=== PATIENT | male | born 1955 | race Caucasian/White ===

== ENCOUNTER 2016-10-15 07:33 | Inpatient (IN) | payer BC ==
[~2016-10-15] VITALS: Ht 177.8 cm; Wt 96.2 kg
[2016-10-15] VITALS (7 sets, daily range): BP systolic 111–186; BP diastolic 63–96; PULSE 74–105; RESP 12–19; TEMP 96.1–98.2; O2SAT 91–99
--- NOTE | 2016-10-15 07:44 | PD ---
HPI Chief Complaint: Musculoskeletal Complaint Time Seen by Provider: 07:43 Travel History International Travel<30 days: No Contact w/Intl Traveler<30days: No Traveled to known affect area: No History of Present Illness HPI 60-year-old male came to the emergency room brought by EMS after he slipped and fell on a wet surface on the floor and injured his right leg. The accident happened at 6:45 AM. Patient denies any loss of consciousness or head injury following the accident. He says he was absolutely fine before he slipped and fell. Patient was unable to get up and bear weight. His roommate called 911. As per EMS they found him with his right leg under his torso. Patient has an obvious right knee deformity. He is unable to move his leg at the knee joint due to the pain. He is awake and answering questions appropriately. He says that he last ate was at midnight. He took a few sips of soda while he was waiting for the paramedics. [place] He has history of diabetes and his bedside blood glucose was 225. His vital signs were within acceptable limits. Patient takes alcohol occasionally. He did drink 2 beers last night. PFSH Past Medical History Narrative Medical List of his past medical history as reviewed from the nursing note. Social History Alcohol Use: Yes Tobacco Use: Yes Allergies-Medications (Allergen,Severity, Reaction): Coded Allergies: No Known Allergies (Unverified , 10/15/16) Comments No known drug allergies. Reported Meds & Prescriptions Reported Meds & Active Scripts Active Reported Aspirin 81 Low Dose (Aspirin) 81 Mg Chew 81 Mg CHEW DAILY Hydrochlorothiazide Unknown Strength Cap Unknown Dose PO DAILY Glipizide Unknown Strength Tab Unknown Dose PO BIDAC Take 30 minutes before a meal Gabapentin Unknown Strength Cap 300 Mg PO TID Atorvastatin (Atorvastatin Calcium) Unknown Strength Tab 40 Mg PO HS Metformin (Metformin HCl) 500 Mg Tab 500 Mg PO DAILY With a meal Narrative Medication Awaiting for the nurse to do a med reconciliation. Review of Systems Except as stated in HPI: all other systems reviewed are Neg Physical Exam Narrative GENERAL: Awake, alert, moderate distress SKIN: Warm and dry. HEAD: Atraumatic. Normocephalic. EYES: Pupils equal and round. No scleral icterus. No injection or drainage. ENT: No nasal bleeding or discharge. Mucous membranes pink and moist. NECK: Trachea midline. No JVD. CARDIOVASCULAR: Regular rate and rhythm. No murmur appreciated. RESPIRATORY: No accessory muscle use. Clear to auscultation. Breath sounds equal bilaterally. GASTROINTESTINAL: Abdomen soft, non-tender, nondistended. Hepatic and splenic margins not palpable. MUSCULOSKELETAL: Right knee swollen and possible dislocation. Right foot is pointing laterally. No clubbing. No cyanosis. No edema. Poor distal pulses. Positive Doppler pulses. Patient is able to move his toes and light touch sensation intact. Overgrown toenails with poor diabetic foot hygiene. Right distal ankle is swollen but nontender. Swelling of the right knee. Patient has significantly decreased range of motion at the right knee, right hip and right ankle joint due to pain. NEUROLOGICAL: Awake and alert. No obvious cranial nerve deficits. Motor grossly within normal limits. Normal speech. PSYCHIATRIC: Appropriate mood and affect; insight and judgment normal. Data Data Last Documented VS Orders Knee, Complete (4vws) (10/15/16 ) Hip, Uni(Ap&Lat) W Ap Pelvis (10/15/16 ) Morphine Inj (Morphine Inj) (10/15/16 08:00) Ondansetron Inj (Zofran Inj) (10/15/16 08:00) Ankle, Limited (Ap&Lat) (10/15/16 ) Electrocardiogram (10/15/16 08:57) Basic Metabolic Panel (Bmp) (10/15/16 08:57) Complete Blood Count With Diff (10/15/16 08:57) Prothrombin Time / Inr (Pt) (10/15/16 08:57) Act Partial Throm Time (Ptt) (10/15/16 08:57) Chest, Single Ap (10/15/16 08:57) Ecg Monitoring (10/15/16 08:57) Bilateral Bp Monitoring (10/15/16 08:57) Iv Access Insert/Monitor (10/15/16 08:57) Oximetry (10/15/16 08:57) Oxygen Administration (10/15/16 08:57) Morphine Inj (Morphine Inj) (10/15/16 09:00) Sodium Chloride 0.9% Flush (Ns Flush) (10/15/16 09:00) Sodium Chlor 0.9% 1000 Ml Inj (Ns 1000 M (10/15/16 09:57) Splinting (10/15/16 ) Admit Order (Ed Use Only) (10/15/16 09:30) Labs MDM Medical Decision Making Medical Screen Exam Complete: Yes Emergency Medical Condition: Yes Medical Record Reviewed: Yes Interpretation(s) Twelve-lead EKG was reviewed by me. Normal sinus rhythm, normal axis, nonspecific ST-T wave changes. Heart rate of 85 bpm. Differential Diagnosis The dislocation, knee fracture, hip dislocation, hip fracture, ankle fracture Narrative Course 8:21 AM awaiting for the x-rays to be done and resulted. I have medicated the patient for pain. I will reassess him in a bit. 9:31 AM patient has comminuted supracondylar femur fracture. He also has a trimalleolar right ankle fracture. I have ordered for a long-leg posterior and U-splint. I have put a call out for Dr. Marin who is on-call for orthopedics. Patient has been remedicated for pain. Patient has been made aware of his x- ray diagnoses and possible surgery. I have asked him to stay nothing by mouth in case this surgery happens later today. I spoke with the residents who have accepted the case. 9:50 AM awaiting for the orthopedist Dr. Brady to call back. 9:[address] Marin called back and he wanted the patient to be admitted to medical service and Dr. Morin will operate tomorrow on the patient. Procedures EKG Prior to Arrival: No Diagnosis Primary Impression: Femoral distal fracture Qualified Code: S72.401A - Closed fracture of distal end of right femur, unspecified fracture morphology, initial encounter Additional Impressions: Trimalleolar fracture Qualified Code: S82.851A - Trimalleolar fracture, right, closed, initial encounter Slipping, tripping and stumbling without falling due to stepping from one level to another, initial encounter Admitting Information Admitting Physician Requests: Admit Scripts Calcium Carbonate-Vitamin D (Calcium 600+D 200)600-200 Mg-Unit Tab1 Tab PO BID 30 Days Ref 0 Prov:Christo Weiss 10/16/16 Cholecalciferol (Vitamin D3)2,000 Unit Cap2,000 Units PO DAILY #56 CAP Ref 0 Prov:Christo Weiss 10/16/16 Ergocalciferol 50,000 Unit Cap50,000 Units PO Q7D #56 CAP Prov:Christo Weiss ALIZA 10/16/16 Rivaroxaban (Xarelto)10 Mg Tab10 Mg PO DAILY #21 TAB Ref 0 Prov:Chrisot Weiss ALIZA 10/16/16 Hydrocodone-Acetaminophen ([place])10-325 Mg Tab1 Tab PO Q4H PRN (PAIN) #60 TAB Ref 0 Prov:Christo Weiss ALIZA 10/16/16 Fortunato Rodriguez MD Oct 15, 2016 07:44 Prothrombin Time 10.3 SEC Prothromb Time International 0.9 RATIO Ratio Activated Partial 23.4 SEC Thromboplast Time Sodium Level 138 MEQ/L Potassium Level 4.0 MEQ/L Chloride Level 106 MEQ/L Carbon Dioxide Level 24.5 MEQ/L Anion Gap 8 MEQ/L Blood Urea Nitrogen 34 MG/DL Creatinine 1.87 MG/DL Estimat Glomerular Filtration 37 ML/MIN Rate Random Glucose 230 MG/DL Calcium Level 8.3 MG/DL [facility] Medical Decision Making Medical Screen Exam Complete: Yes Emergency Medical Condition: Yes Medical Record Reviewed: Yes Interpretation(s) Twelve-lead EKG was reviewed by me. Normal sinus rhythm, normal axis, nonspecific ST-T wave changes. Heart rate of 85 bpm. Differential Diagnosis The dislocation, knee fracture, hip dislocation, hip fracture, ankle fracture Narrative Course 8:21 AM awaiting for the x-rays to be done and resulted. I have medicated the patient for pain. I will reassess him in a bit. 9:31 AM patient has comminuted supracondylar femur fracture. He also has a trimalleolar right ankle fracture. I have ordered for a long-leg posterior and U-splint. I have put a call out for Dr. Marin who is on-call for orthopedics. Patient has been remedicated for pain. Patient has been made aware of his x- ray diagnoses and possible surgery. I have asked him to stay nothing by mouth in case this surgery happens later today. I spoke with the residents who have accepted the case. 9:50 AM awaiting for the orthopedist Dr. Brady to call back. 9:[address] Marin called back and he wanted the patient to be admitted to medical service and Dr. Morin will operate tomorrow on the patient. Procedures EKG Prior to Arrival: No Diagnosis Primary Impression: Femoral distal fracture Qualified Code: S72.401A - Closed fracture of distal end of right femur, unspecified fracture morphology, initial encounter Additional Impressions: Trimalleolar fracture Qualified Code: S82.851A - Trimalleolar fracture, right, closed, initial encounter Slipping, tripping and stumbling without falling due to stepping from one level to another, initial encounter Admitting Information Admitting Physician Requests: Admit Fortuanto Rodriguez MD Oct 15, 2016 07:44
[2016-10-15] MEDS ORDERED: ONDANSETRON HCL 4 MG/2 ML VIAL IV PUSH ONE (08:00)
[2016-10-15] MEDS ORDERED: MORPHINE SULFATE 4 MG/ML INJ IV PUSH ONE ×2 (08:00→09:00)
[2016-10-15] MEDS ORDERED: METF500T PO (08:15)
[2016-10-15] MEDS ORDERED: ATOR10TA15 PO (08:15)
[2016-10-15] MEDS ORDERED: GABA100C4 PO (08:16)
[2016-10-15] MEDS ORDERED: ASPI81CH3 CHEW (08:16)
[2016-10-15] MEDS ORDERED: GLIP5TAB8 PO (08:16)
[2016-10-15] MEDS ORDERED: HYDR12.57 PO (08:16)
[2016-10-15] MEDS ORDERED: SODIUM CHLORIDE 0.9% FLUSH 5 ML FLUSH IVF PRN ×2 (09:00→09:45)
--- NOTE | 2016-10-15 09:02 | RADRPT ---
EXAM DATE/TIME: 10/15/2016 08:28 [facility] COMPARISON: No previous studies available for comparison. INDICATIONS : Right knee pain after falling this morning. MEDICAL HISTORY : None. SURGICAL HISTORY : Right knee arthroscopy. ENCOUNTER: Initial ACUITY: 1 day PAIN SCORE: 9/10 LOCATION: Right knee. FINDINGS: There is a comminuted fracture of the distal right femur with a leak fracture lines extending through the metaphyseal region of the bone. There is apex anterior angulation and nearly 1/2 shaft width pos terior displacement of multiple distal fracture fragments. Some impaction of the femoral shaft down i nto the condylar fragments. The patella appears grossly intact. The tibia and fibula appear intact. T here is severe baseline degenerative arthritic change with near-complete medial compartment joint spa ce loss and tricompartmental osteophyte formation. CONCLUSION: Comminuted, impacted, displaced and angulated fracture of the distal right femoral metaphyseal region Jericho Irvin MD on October 15, 2016 at 8:58 Board Certified Radiologist. This report was verified electronically.
--- NOTE | 2016-10-15 09:04 | RADRPT ---
EXAM DATE/TIME: 10/15/2016 08:25 [facility] COMPARISON: No previous studies available for comparison. INDICATIONS : Right hip pain after falling this morning. MEDICAL HISTORY : None. SURGICAL HISTORY : Right knee arthroscopy. ENCOUNTER: Initial ACUITY: 1 day PAIN SCORE: 9/10 LOCATION: Right hip. FINDINGS: Examination of the right hip was performed with AP Pelvis. The primary and secondary trabecular ryan justin of the femoral neck is intact. The hip joint is of normal width without significant sclerosis or bony hypertrophy. The acetabulum is grossly intact. CONCLUSION: Unremarkable examination of the right hip. Jericho Irvin MD on October 15, 2016 at 9:02 Board Certified Radiologist. This report was verified electronically.
--- NOTE | 2016-10-15 09:07 | RADRPT ---
EXAM DATE/TIME: 10/15/2016 08:25 [facility] COMPARISON: No previous studies available for comparison. INDICATIONS : Right ankle pain after falling this morning. MEDICAL HISTORY : None. SURGICAL HISTORY : Right knee arthroscopy. ENCOUNTER: Initial ACUITY: 1 day PAIN SCORE: 9/10 LOCATION: Right ankle. FINDINGS: A trimalleolar right ankle fracture is identified. There is a minimally displaced oblique fracture of the distal fibula centered on the tibiofibular joint. A minimally displaced fracture of the medial m alleolus and posterior malleolus are identified. There is slight apparent superior offset of the talu s relative to the tarsal navicular which may reflect injury at Chopart's joint. There are degenerativ e changes in the ankle and hindfoot. Small plantar heel spur is present. Prominent vascular calcifica tions are noted. CONCLUSION: Trimalleolar ankle fracture with slight displacement of the fragments. Mild talonavicular joint sublu xation. Jericho Irvin MD on October 15, 2016 at 9:02 Board Certified Radiologist. This report was verified electronically.
--- NOTE | 2016-10-15 09:14 | HHI.HP ---
[facility] Service Family Medicine Primary Care Physician Non-Staff Admission Diagnosis Diagnoses: International Travel<30 Days: No Contact w/Intl Traveler<30days: No Known Affected Area: No History of Present Illness Mr. Marsh is a 60 y/o CM with a PMHx of HPLD, HTN, and T2DM presenting to the ER s/p fall. He is with a friend in [facility] for the races, and he assists in the history. He states that this morning at approximately 0630 he got up to go use the bathroom when he fell. He did not lose consciousness during the fall and describes it as "falling backward onto his RLE with his LLE going forward in front of him." When he fell he heard a "crack" and immediately lost feeling in his entire RLE. He tried to get up from the floor, but was unable to bear weight on his RLE. At that time, he began feeling 10/10 pain "stabbing" pain in his knee. His friend called EMS and was transported to the ER. Currently he only complains of knee pain that is currently tolerable as he has just received a dose of morphine. He does not complain of any ankle or hip pain. He last had any food at around midnight, but has had soda this morning. Of note he has had R knee arthroscopy approximately 30 years ago. He denies any fevers, chills, SOB , chest pain, NVD, or calf tenderness. (Ethan Mcelroy MD R1) Review of Systems Constitutional: DENIES: Fever, Chills Endocrine: DENIES: Polyuria Eyes: DENIES: Blurred vision Ears, nose, mouth, throat: DENIES: Throat pain Respiratory: DENIES: Cough, Shortness of breath Cardiovascular: DENIES: Chest pain, Palpitations Gastrointestinal: DENIES: Diarrhea, Nausea, Vomiting Genitourinary: DENIES: Dysuria Musculoskeletal: COMPLAINS OF: Joint pain (R leg) Integumentary: DENIES: Rash Hematologic/lymphatic: DENIES: Lymphadenopathy Immunologic/allergic: DENIES: Urticaria Neurologic: DENIES: Headache Psychiatric: DENIES: Mood changes (Ethan Mcelroy MD R1) Past Family Social History Past Medical History HTN DM type 2 with neuropathy HPLD Osteoarthritis Past Surgical History Elbow fracture fixation as teenager R knee arthroscopy 30 years ago (Ethan Mcelroy MD R1) Allergies: Coded Allergies: No Known Allergies (Unverified , 10/15/16) Family History Mother - DM, HTN Father - unknown Son - OA Social History Live in [place], visiting [facility] for race week. 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 Alcohol - occasionally yearly, last drink was a tallboy beer last night Smoke - Denies Illicit - Occasionally, every few weeks, last used 2 weeks ago Denies any IVD, HIV, or hepatitis history. (Ethan Mcelroy MD R1) Physical Exam Vital Signs Vital Signs Date Time Temp Pulse Resp B/P Pulse Ox O2 Delivery O2 Flow Rate FiO2 10/15/16 09:03 86 12 160/76 99 Room Air 159/72 10/15/16 07:49 98.0 77 12 160/74 97 10/15/16 07:38 98.2 83 16 152/70 98 Physical Exam GENERAL: Pale appearing 60 y/o M lying in bed in no acute distress. RLE is angled outward opening the hip with LLE midline. SKIN: Multiple scratches of the upper and lower extremities patient states due to cats. No rashes or obvious trauma. Cool and dry. HEENT: Atraumatic, normocephalic with EOMI. Pupils miotic s/p morphine. Oropharynx clear without exudate or erythema. No rhinorrhea. No palpable LAD. CARDIOVASCULAR: RRR with no MGR. RESPIRATORY: CTA BL with no CRW. No increased work of breathing. GASTROINTESTINAL: Abdomen soft, non-tender, nondistended with +BS. No masses appreciated. MUSCULOSKELETAL: Extremities without cyanosis or edema. No calf tenderness. RLE: RLE angled outward opening the hip with ice packs applied to R knee and ankle. Patient unable to move extremity due to pain in the knee, but is able to move his toes. Knee appears to possibly be dislocated, but difficult to evaluate due to swelling. Pulses marked via doppler. Sensation intact throughout the RLE. Foot with overgrown toenails. No open ulcerations. NEUROLOGICAL: Awake and alert. Cranial nerves II through XII intact. Normal speech. (Ethan Mcelroy MD R1) Imaging Last 72 hours Impressions Chest X-Ray 10/15/16 0857 Signed Impressions: Service Date/Time: September 09:08 - CONCLUSION: Questionable opacity or pleural thickening at the right apex. Recommend further characterization with noncontrast CT thorax. Anjel Christensen MD Knee X-Ray 10/15/16 Signed Impressions: Service Date/Time: September 08:28 - CONCLUSION: Comminuted , impacted, displaced and angulated fracture of the distal right femoral metaphyseal region Jericho Irvin MD Hip and Pelvis X-Ray 10/15/16 Signed Impressions: Service Date/Time: September 08:25 - CONCLUSION: Unremarkable examination of the right hip. Jericho Irvin MD Ankle X-Ray 10/15/16 Signed Impressions: Service Date/Time: September 08:25 - CONCLUSION: Trimalleolar ankle fracture with slight displacement of the fragments. Mild talonavicular joint subluxation. Jericho Irvin MD (Ethan Mcelroy MD R1) Assessment and Plan Assessment and Plan Mr. Marsh is a 60 y/o CM with a PMHx of HTN, HPLD, and T2DM who is s/p fall presenting to the ED with multiple right lower extremity fractures. He will be admitted and orthopedic surgery will be consulted for corrective surgery. Code Status Full Discussed Condition With , ED physician Dr. Hollis Quinteros (Ethan Mcelroy MD R1) Attending Attestation Patient seen and examined. Case reviewed and discussed with the resident team. Agree with plan of care as discussed with me and documented in the resident note. (Rosa Shafer MD) Problem List: (1) Femoral distal fracture Status: Acute Plan: 60 y/o patient who is s/p fall without loss of consciousness shown to have closed distal femoral and trimalleolar fractures of the right lower extremity. Orthopedic surgery consulted and will take patient to surgery tomorrow for fixation. Knee x-ray: Comminuted, impacted, displaced, and angulated fracture of the distal right femoral metaphyseal region. Ankle x-ray: Trimalleolar ankle fracture with slight displacement of the fragments. Mild talonavicular joint subluxation. Hip/pelvis x-ray: Unremarkable examination of the right hip. Orthopedic surgery consulted, Dr. Miller, and will plan to take patient to surgery tomorrow for fixation. Medications: Hydrocodone 5 mg every 4 hours when necessary for pain 1-5, hydrocodone 10 mg every 4 hours when necessary for pain 6-10, Morphine 4 mg every 2 hours when necessary for breakthrough pain. (2) Trimalleolar fracture Status: Acute Plan: Please see plan as above (3) Slipping, tripping and stumbling without falling due to stepping from one level to another, initial encounter Status: Acute Plan: Please see plan as above (4) Abnormal chest xray Status: Chronic Plan: Chest x-ray showing questionable opacity or pleural thickening at right apex. Chest x-ray: Vaginal Pap smear pleural thickening at the right apex. Recommended further characterization with noncontrast CT Noncontrast CT chest/thorax: Right thyroid mass. Recommend further evaluation with thyroid ultrasound. Small right lung nodules which can be followed. --Thyroid US: Pending Patient to follow up with PCP concerning right lung nodules. (5) Hyperlipidemia Status: Chronic Plan: Patient with hyperlipidemia currently on atorvastatin Patient currently does not know home dose, instructed patient to bring in medications for further reconciliation. (6) HTN (hypertension) Status: Chronic Plan: Patient with chronic hypertension currently on hydrochlorothiazide Patient currently does not know home dose, instructed patient to bring in medications for further reconciliation. Hydralazine 10 mg every 6 hours when necessary for SBP greater than 180 or diastolic blood pressure greater than 110 (7) Type 2 diabetes mellitus Status: Chronic Plan: Patient with type 2 diabetes currently on glipizide, metformin, and gabapentin for neuropathy. Glucose 2:30 on admission. Patient currently does not know home dose, instructed patient to bring in medications for further reconciliation. Patient placed on low-dose NovoLog sliding scale insulin per protocol. (8) Nutrition, metabolism, and development symptoms Status: Acute Plan: Diet: Heart healthy, patient to be nothing by mouth at midnight in preparation for surgery in a.m. Fluids: LR at 100 mL per hour to be in at midnight as patient will be nothing by mouth DVT prophylaxis: SCD/TEDs applied to the noninjured extremity, hold home aspirin GI: Zofran 4 mg every 6 hours when necessary for nausea or vomiting Preventative: Benadryl 25 mg every 4 hours when necessary for itching, Sydni- Colace 2 tabs twice a day when necessary for constipation, Tylenol 650 mg every 4 hours when necessary for fever (Ethan Mcelroy MD R1) Physician Certification 2 Midnight Certification Type: Admission for Inpatient Services Order for Inpatient Services The services are ordered in accordance with Medicare regulations or non- Medicare payer requirements, as applicable. In the case of services not specified as inpatient-only, they are appropriately provided as inpatient services in accordance with the 2-midnight benchmark. Estimated LOS (days): 3 3 days is the estimated time the patient will need to remain in the hospital, assuming treatment plan goals are met and no additional complications. Post-Hospital Plan: Home (Ethan Mcelroy MD R1) Problem Qualifiers (1) Femoral distal fracture: Qualified Code: S72.401A - Closed fracture of distal end of right femur, unspecified fracture morphology, initial encounter (2) Trimalleolar fracture: Qualified Code: S82.851A - Trimalleolar fracture, right, closed, initial encounter Ethan Mcelroy MD R1 Oct 15, 2016 09:14 Rosa Shafer MD Oct 16, 2016 11:53
[2016-10-15 09:16] LABS: AUTOMATED NEUTROPHIL # 9.9 TH/MM3 (1.8-7.7); BASOPHIL # 0.1 TH/MM3 (0-0.2); BASOPHIL % 0.5 % (0.0-2.0); EOSINOPHIL # 0.4 TH/MM3 (0-0.4); EOSINOPHIL % 2.6 % (0.0-4.0); HEMATOCRIT 37.1 % (39.0-51.0); HEMO FLAGS DIFF FINAL; LYMPHOCYTE # 2.5 TH/MM3 (1.0-4.8); MEAN CELL VOLUME 85.2 FL (80.0-100.0); MEAN CORPUSCULAR HEMOGLOBIN 28.9 PG (27.0-34.0); MEAN CORPUSCULAR HGB CONC 33.9 % (32.0-36.0); MONO % 5.7 % (0.0-8.0); NEUT % 73.2 % (16.0-70.0); PLATELET COUNT 220 TH/MM3 (150-450); RED BLOOD COUNT 4.35 MIL/MM3 (4.50-5.90); RED CELL DISTRIBUTION WIDTH 13.2 % (11.6-17.2); WHITE BLOOD COUNT 13.6 TH/MM3 (4.0-11.0)
[2016-10-15 09:27] LABS: APTT (PATIENT) 23.4 SEC (24.3-30.1); INTERNATIONAL NORMALIZED RATIO 0.9 RATIO; PROTHROMBIN TIME - PATIENT 10.3 SEC (9.8-11.6)
--- NOTE | 2016-10-15 09:38 | RADRPT ---
EXAM DATE/TIME: 10/15/2016 09:08 [facility] COMPARISON: No previous studies available for comparison. INDICATIONS : Evaluate for pneumonia, pneumothorax, and communicable disease. Right leg fracture with possible tejas maki. MEDICAL HISTORY : Hypertension. Hypercholesterolemia. Diabetes. SURGICAL HISTORY : Right knee arthroscopy. ENCOUNTER: Initial ACUITY: 1 day PAIN SCORE: 0/10 LOCATION: Bilateral chest FINDINGS: There is an asymmetric appearance to the pulmonary apex with questionable opacity or pleural thickeni ng on the right side. There is also some deformity of the right 1st rib which may be due to old bony injury. The remainder of the lungs are clear. Both hemidiaphragms well delineated. The heart is n ormal size. The central bronchopulmonary markings well delineated. CONCLUSION: Questionable opacity or pleural thickening at the right apex. Recommend further characterization wit h noncontrast CT thorax. Anjel Christensen MD on October 15, 2016 at 9:35 Board Certified Radiologist. This report was verified electronically.
[2016-10-15] MEDS ORDERED: LACTATED RINGER'S 1000 ML INJ 1,000 ML IV SCH (09:39)
[2016-10-15 09:42] LABS: BICARBONATE 24.5 MEQ/L (21.0-32.0)
[2016-10-15] MEDS ORDERED: DEXTROSE 50% IN WATER 50 ML VIAL(D50) IV PUSH PRN (09:45)
[2016-10-15] MEDS ORDERED: DOCUSATE SODIUM 50 MG/SENNA 8.6 MG TAB PO PRN (09:45)
[2016-10-15] MEDS ORDERED: SODIUM CHLORIDE 0.9% FLUSH 5 ML FLUSH FLUSH SCH (09:45)
[2016-10-15] MEDS ORDERED: ENALAPRILAT 1.25 MG/ML VIAL IV PRN (09:45)
[2016-10-15] MEDS: SODIUM CHLORIDE 0.9% FLUSH 5 ML FLUSH IVF SCH ×2 (09:45→20:38)
[2016-10-15] MEDS ORDERED: diphenhydrAMINE HCL 25 MG CAP PO PRN (09:45)
[2016-10-15] MEDS ORDERED: MORPHINE SULFATE 8 MG/ML INJ IV PUSH PRN (09:45)
[2016-10-15] MEDS ORDERED: ACETAMINOPHEN 325 MG TAB PO PRN (09:45)
[2016-10-15] MEDS ORDERED: ACETAMINOPHEN/HYDROcodone 325 MG/5 MG TAB PO PRN (09:45)
[2016-10-15] MEDS ORDERED: GLUCAGON 1 MG/ML VIAL OTHER PRN (09:45)
[2016-10-15] MEDS ORDERED: NALOXONE HCL 0.4 MG/ML AMP IV PRN (09:45)
[2016-10-15] MEDS ORDERED: SODIUM CHLORIDE 0.9% FLUSH 5 ML FLUSH FLUSH PRN (09:45)
[2016-10-15] MEDS ORDERED: SODIUM CHLOR 0.9% 1000 ML INJ 1,000 ML IV SCH (09:57)
[2016-10-15] MEDS ORDERED: MORPHINE SULFATE 4 MG/ML INJ IV PUSH PRN ×2 (11:00→18:00)
--- NOTE | 2016-10-15 11:06 | RADRPT ---
EXAM DATE/TIME: 10/15/2016 10:37 [facility] COMPARISON: CHEST SINGLE AP, October 15, 2016, 9:08. INDICATIONS : Abnormal chest x-ray RADIATION DOSE: 5.63 CTDIvol (mGy) MEDICAL HISTORY : Hypertension. Diabetes mellitus type 2. SURGICAL HISTORY : None. ENCOUNTER: Initial ACUITY: 1 day PAIN SCALE: 0/10 LOCATION: Right anterior TECHNIQUE: Volumetric scanning of the chest was performed. Using automated exposure control and adjustment of t he mA and/or kV according to patient size, radiation dose was kept as low as reasonably achievable to obtain optimal diagnostic quality images. FINDINGS: LUNGS: There are several tiny nodules in the right lung, largest about 4 mm in size. There is no larger mass identified. No infiltrate is present. There is specifically no opacity in the right lung apex. PLEURAE: There is no pleural thickening or pleural effusion. MEDIASTINUM: There is no evidence of mediastinal adenopathy. There does appear to be a mass involving the right lo be of thyroid. Further evaluation with thyroid sonography would be recommended. AXILLAE: Within normal limits. No lymphadenopathy. MUSCULOSKELETAL: Within normal limits for patient age. MISCELLANEOUS: The visualized upper abdominal organs demonstrate no acute abnormality. CONCLUSION: Right thyroid mass. Recommend further evaluation with thyroid sonography. Tiny right lung nodules which can be followed. Jericho Irvin MD on October 15, 2016 at 10:49 Board Certified Radiologist. This report was verified electronically.
[2016-10-15] MEDS: INSULIN ASPART SUPPLEMENTAL SCALE SQ SCH ×3 (11:39→20:38)
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
--- NOTE | 2016-10-15 13:36 | RADRPT ---
EXAM DATE/TIME: 10/15/2016 12:40 [facility] COMPARISON: No previous studies available for comparison. INDICATIONS : Distal femur fracture. RADIATION DOSE: 7.32 CTDIvol (mGy) MEDICAL HISTORY : Cardiovascular disease. Hypertension. Diabetes mellitus type 2. SURGICAL HISTORY : None. ENCOUNTER: Initial ACUITY: 1 day PAIN SCALE: 10/10 LOCATION: Right leg TECHNIQUE: Volumetric scanning of the knee was performed. Using automated exposure control and adjustment of th e mA and/or kV according to patient size, radiation dose was kept as low as reasonably achievable to obtain optimal diagnostic quality images. FINDINGS: There is a comminuted fracture of the distal femur involving both the diaphysis and diametaphysis. T here is almost one shaft width posterior displacement of the distal fracture fragment and there is mo derate posterior angulation of the distal fracture fragment. There are several fracture lines along the lateral aspect of the epiphysis of the femur. There is prominent heterotopic ossification about the posterior medial compartment, widening of the intercondylar notch, and cystic change at the base of the tibial tubercles and osseous cysts in the epiphysis of the proximal tibia, larger on the later al side than medial. Marked narrowing of the medial joint space and prominent osteophyte formation. The patella appears grossly intact. CONCLUSION: Comminuted and angulated fracture of the distal femur with some comminution and some impaction. Anjel Christensen MD on October 15, 2016 at 13:31 Board Certified Radiologist. This report was verified electronically.
[2016-10-15] MEDS: hydrALAZINE HCL 10 MG TAB PO PRN (13:44)
[2016-10-15] MEDS: ACETAMINOPHEN/HYDROcodone 325 MG/10 MG TAB PO PRN ×3 (13:44→22:35)
--- NOTE | 2016-10-15 14:59 | RADRPT ---
EXAM DATE/TIME: 10/15/2016 13:31 [facility] COMPARISON: CT THORAX W/O CONTRAST, October 15, 2016, 10:37. INDICATIONS : Thyroid mass seen on CT scan. MEDICAL HISTORY : Hypercholesterolemia. Hypertension. Diabetic. Cardiac disorders. SURGICAL HISTORY : Tonsillectomy. Right knee and left elbow surgery. ENCOUNTER: Subsequent ACUITY: 1 day PAIN SCORE: 1/10 LOCATION: Bilateral thyroid. MEASUREMENTS: RIGHT LOBE: 6.4 x 2.8 x 2.8 cm LEFT LOBE: 4.5 x 2.2 x 2.8 cm FINDINGS: RIGHT LOBE: Mildly heterogeneous echotexture. In the mid gland there is a nodule measuring 2.4 x 1.8 x 4.1 cm. It is heterogeneous in echotexture but mostly isoechoic and almost entirely solid. It is wider than raman l and demonstrates no irregular margins and contains no calcification. LEFT LOBE: Mildly heterogeneous echotexture. In the lower pole there is a 6 x 6 x 6 mm hypoechoic nodule. ISTHMUS: Normal in size without focal abnormality. CONCLUSION: The nodule identified on recent ultrasound represents a predominantly solid nodule in the right mid t hyroid gland measuring up to 4.1 cm. It contains no calcification and demonstrates no irregular jose ns. Based on the size one could consider fine needle aspiration biopsy versus ultrasound followup. Jericho Hanks MD on October 15, 2016 at 14:54 Board Certified Radiologist. This report was verified electronically.
--- NOTE | 2016-10-15 18:53 | EKG ---
Date Performed: 10/15/2016 Time Performed: 09:02:14 PTAGE: 60 years EKG: Sinus rhythm NORMAL ECG NO PREVIOUS TRACING DOCTOR: Ming Henson Interpretating Date/Time 10/15/2016 18:51:08
[2016-10-16] VITALS (7 sets, daily range): BP systolic 141–193; BP diastolic 77–98; PULSE 81–102; RESP 18; TEMP 96.9–100; O2SAT 97–99
[2016-10-16] MEDS: ACETAMINOPHEN/HYDROcodone 325 MG/10 MG TAB PO PRN ×4 (02:08→21:27)
[2016-10-16 06:37] LABS: AUTOMATED NEUTROPHIL # 7.3 TH/MM3 (1.8-7.7); BASOPHIL # 0.1 TH/MM3 (0-0.2); BASOPHIL % 0.6 % (0.0-2.0); EOSINOPHIL # 0.1 TH/MM3 (0-0.4); EOSINOPHIL % 0.7 % (0.0-4.0); HEMATOCRIT 30.3 % (39.0-51.0); HEMO FLAGS DIFF FINAL; LYMPH % 16.8 % (9.0-44.0); LYMPHOCYTE # 1.7 TH/MM3 (1.0-4.8); MEAN CELL VOLUME 84.8 FL (80.0-100.0); MEAN CORPUSCULAR HEMOGLOBIN 29.3 PG (27.0-34.0); MEAN CORPUSCULAR HGB CONC 34.6 % (32.0-36.0); MONO % 8.5 % (0.0-8.0); NEUT % 73.4 % (16.0-70.0); PLATELET COUNT 172 TH/MM3 (150-450); RED BLOOD COUNT 3.57 MIL/MM3 (4.50-5.90)
--- NOTE | 2016-10-16 06:40 | PD.ORT.PN ---
Subjective Subjective Remarks s/p fall at home. slipped on wet floor Objective Vitals Vital Signs Date Time Temp Pulse Resp B/P Pulse Ox O2 Delivery O2 Flow Rate FiO2 10/16/16 04:00 98.9 102 18 141/95 98 10/16/16 00:00 100.0 97 18 152/82 99 10/15/16 20:00 97.7 105 19 165/86 98 10/15/16 13:00 97.6 84 18 186/96 99 10/15/16 11:08 98 21 10/15/16 10:00 74 16 138/63 98 Room Air 10/15/16 09:03 86 12 160/76 99 Room Air 159/72 10/15/16 07:49 98.0 77 12 160/74 97 10/15/16 07:38 98.2 83 16 152/70 98 I/O 10/15/16 10/15/16 10/15/16 10/16/16 10/16/16 10/16/16 07:00 15:00 23:00 07:00 15:00 23:00 Intake Total 720 ml 0 ml Output Total 400 ml Balance 720 ml -400 ml Intake Oral 720 ml 0 ml Output Urine Total 400 ml # Voids 4 # Bowel Movements 0 0 Result Diagram: 10/15/16 0804 10/15/16 0804 Other Results Laboratory Tests Test 10/15/16 08:04 Prothrombin Time 10.3 SEC (9.8-11.6) Prothromb Time International 0.9 RATIO Ratio Imaging Last 24 hours Impressions Chest X-Ray 10/15/16 0857 Signed Impressions: Service Date/Time: September 09:08 - CONCLUSION: Questionable opacity or pleural thickening at the right apex. Recommend further characterization with noncontrast CT thorax. Anjel Christensen MD Objective Remarks RLE: +long leg splint. NVi Assessment & Plan Assessment and Plan 1) Right Distal Femur Fx and Trung Ankle Fx -npo -consents -surgery today Christo Weiss Oct 16, 2016 06:40
[2016-10-16] MEDS ORDERED: VITA2000 PO (06:43)
[2016-10-16] MEDS ORDERED: ERGO1CAP30 PO (06:43)
[2016-10-16] MEDS ORDERED: WALKER/ADULT/FO1 MIS (06:43)
[2016-10-16] MEDS ORDERED: HYDR-3366 PO (06:43)
[2016-10-16] MEDS ORDERED: WHEEMIS3 (06:43)
[2016-10-16] MEDS ORDERED: XARE10TA PO (06:43)
[2016-10-16] MEDS ORDERED: CALCTAB19 PO (06:43)
[2016-10-16 07:01] LABS: BICARBONATE 24.6 MEQ/L (21.0-32.0); POTASSIUM 3.8 MEQ/L (3.5-5.1)
[2016-10-16] MEDS ORDERED: INSULIN HUMAN REGULAR 1,000 UNITS/10 ML VIAL SQ PRN (07:45)
[2016-10-16] MEDS: LACTATED RINGER'S 1000 ML IV SCH (07:45)
[2016-10-16] MEDS: SODIUM CHLORID 0.9% 500 ML IV SCH (07:45)
[2016-10-16] MEDS ORDERED: METOPROLOL TARTRATE 25 MG TAB PO PRN (07:45)
[2016-10-16] MEDS: INSULIN ASPART SUPPLEMENTAL SCALE SQ SCH ×4 (07:48→21:43)
[2016-10-16] MEDS: SODIUM CHLORIDE 0.9% FLUSH 5 ML FLUSH IVF SCH ×2 (08:07→21:29)
[2016-10-16] MEDS: hydrALAZINE HCL 10 MG TAB PO PRN (08:07)
[2016-10-16] MEDS: LACTATED RINGER'S 1000 ML INJ 1,000 ML IV SCH ×3 (08:18→14:25)
[2016-10-16] MEDS ORDERED: ceFAZolin 2 GM PREMIX 50 ML ONE ×2 (08:22→11:15)
[2016-10-16] MEDS ORDERED: GENTAMICIN SULFATE 80 MG/2 ML VIAL ONE ×5 (08:22→11:16)
[2016-10-16] MEDS ORDERED: ACETAMINOPHEN 1000 MG/100 ML VIAL IV ONE (11:30)
[2016-10-16] MEDS ORDERED: FAMOTIDINE 20 MG/2 ML VIAL ONE (11:31)
[2016-10-16] MEDS ORDERED: MIDAZOLAM HCL 2 MG/2 ML VIAL ONE (11:31)
[2016-10-16] MEDS ORDERED: fentaNYL CITRATE 250 MCG/5 ML AMP ONE ×2 (11:31→14:27)
[2016-10-16] MEDS ORDERED: DEXAMETHASONE SOD PHOS 4 MG/ML VIAL ONE (11:31)
[2016-10-16] MEDS ORDERED: ONDANSETRON HCL 4 MG/2 ML VIAL ONE (11:32)
[2016-10-16] MEDS ORDERED: VANCOMYCIN HCL 1000 MG VIAL ONE (11:35)
[2016-10-16] MEDS ORDERED: LACTATED RINGER'S 1000 ML INJ 1,000 ML IV ONE (12:00)
[2016-10-16] MEDS ORDERED: PHENYLEPH/NS 1000 MCG/10 ML SYR IV ONE (12:00)
[2016-10-16] MEDS ORDERED: NEOSTIGMINE 3 MG/3 ML SYR IV ONE (12:00)
[2016-10-16] MEDS ORDERED: PROPOFOL 200 MG/20 ML AMP IV ONE (12:00)
--- NOTE | 2016-10-16 12:18 | HHI.FPPN ---
Subjective Remarks Patient seen and examined this morning. No acute events overnight with stable vital signs. Patient very apprehensive prior to surgery and is tearful when discussing returning home to her how to care for his pets and animals. Medical team reassured him that we will assist him as much as possible as well as case management. At the end of the interview he was very appreciative of his care and was more at ease when discussing his surgery planned for today. He has no new complaints and denies any fever, chills, SOB, chest pain, NVD, or calf tenderness. Of note, due to his sensitive state, we did not discus the findings of his thyroid US. (Ethan Mcelroy MD R1) Objective Vitals Vital Signs Date Time Temp Pulse Resp B/P Pulse Ox O2 Delivery O2 Flow Rate FiO2 10/16/16 10:06 156/90 10/16/16 08:00 98.0 99 18 193/98 99 10/16/16 04:00 98.9 102 18 141/95 98 10/16/16 00:00 100.0 97 18 152/82 99 10/15/16 20:00 97.7 105 19 165/86 98 10/15/16 13:00 97.6 84 18 186/96 99 I/O 10/15/16 10/15/16 10/15/16 10/16/16 10/16/16 10/16/16 07:00 15:00 23:00 07:00 15:00 23:00 Intake Total 720 ml 0 ml Output Total 400 ml Balance 720 ml -400 ml Intake Oral 720 ml 0 ml Output Urine Total 400 ml # Voids 4 # Bowel Movements 0 0 (Ethan Mcelroy MD R1) Result Diagram: 10/16/1661210/16/1613 Objective Remarks GEN: Normally nourished, in some mild distress with transient nausea. EYES: Conjunctiva normal, PERRLA, EOMI. ENT: Mouth and pharynx normal. NECK: Thyroid midline, carotids symmetrical. No thyroid mass appreciated. LUNGS: Clear A-P, respiratory effort is normal. CARDIOVASCULAR: RR without murmur or gallop. No significant edema. GI/ABD: Soft without masses, without organomegaly. NEURO: No focal deficits. SKIN: Color normal, no rashes noted. HEME/LYMPH: No bruising, petechia or significant adenopathy MUSC: Back is normal in appearance. Right lower extremity is immobilized with cooling apparatus in place for the distal femur and the right ankle. He moves toes well on both feet, but has significant hypertrophy of his toenails both feet. PSYCH/MENTAL STATUS: Alert and oriented x 3. (Ethan Mcelroy MD R1) A/P Assessment and Plan Mr. Marsh is a 60 y/o CM with a PMHx of HTN, HPLD, and T2DM who is s/p fall presenting to the ED with multiple right lower extremity fractures. He will be admitted and orthopedic surgery will be consulted for corrective surgery. Discharge Planning Pending surgical fixation of his RLE fractures and ortho recommendations. DW: Dr. Shafer and Dr. Quinteros (Ethan Mcelroy MD R1) Attending Attestation Patient seen and examined. Case reviewed and discussed with the resident team. Agree with plan of care as discussed with me and documented in the resident note. (Rosa Shafer MD) Problem List: (1) Femoral distal fracture Status: Acute Plan: 60 y/o patient who is s/p fall without loss of consciousness shown to have closed distal femoral and trimalleolar fractures of the right lower extremity. Orthopedic surgery consulted and will take patient to surgery tomorrow for fixation. Knee x-ray: Comminuted, impacted, displaced, and angulated fracture of the distal right femoral metaphyseal region. Ankle x-ray: Trimalleolar ankle fracture with slight displacement of the fragments. Mild talonavicular joint subluxation. Hip/pelvis x-ray: Unremarkable examination of the right hip. Calcium 8.3 and vitamin D 4.6, vitamin D 50,000 units once, patient to follow up with PCP Orthopedic surgery consulted, Dr. Miller, and will plan to take patient to surgery tomorrow for fixation. Medications: Hydrocodone 5 mg every 4 hours when necessary for pain 1-5, hydrocodone 10 mg every 4 hours when necessary for pain 6-10, Morphine 4 mg every 2 hours when necessary for breakthrough pain. (2) Trimalleolar fracture Status: Acute Plan: Please see plan as above (3) Slipping, tripping and stumbling without falling due to stepping from one level to another, initial encounter Status: Acute Plan: Please see plan as above (4) Thyroid mass of unclear etiology Status: Acute Plan: Chest x-ray showing questionable opacity or pleural thickening at right apex. Chest x-ray: Vaginal Pap smear pleural thickening at the right apex. Recommended further characterization with noncontrast CT Noncontrast CT chest/thorax: Right thyroid mass. Recommend further evaluation with thyroid ultrasound. Small right lung nodules which can be followed. Thyroid US: Nodule identified on recent ultrasound represents predominantly solid nodule in the right mid thyroid gland measuring 4.1 cm. Contain some calcification and demonstrates no irregular margins. Based on the size, one could consider fine-needle aspiration biopsy versus ultrasound follow-up. Currently patient is UNAWARE of findings, medical team to discuss status with him after his procedure Patient to follow up with PCP concerning right lung nodules. (5) Hyperlipidemia Status: Chronic Plan: Patient with hyperlipidemia currently on atorvastatin Patient currently does not know home dose, instructed patient to bring in medications for further reconciliation. (6) HTN (hypertension) Status: Chronic Plan: Patient with chronic hypertension currently on hydrochlorothiazide Patient currently does not know home dose, instructed patient to bring in medications for further reconciliation. Hydralazine 10 mg every 6 hours when necessary for SBP greater than 180 or diastolic blood pressure greater than 110 (7) Type 2 diabetes mellitus Status: Chronic Plan: Patient with type 2 diabetes currently on glipizide, metformin, and gabapentin for neuropathy. Glucose 230 on admission. Patient currently does not know home dose, instructed patient to bring in medications for further reconciliation. Patient placed on low-dose NovoLog sliding scale insulin per protocol. (8) Nutrition, metabolism, and development symptoms Status: Acute Plan: Diet: NPO diet overnight prior to surgery, resume Heart Healthy diet post -procedure Fluids: LR at 100 mL per hour since midnight DVT prophylaxis: SCD/TEDs applied to the noninjured extremity, hold home aspirin GI: Zofran 4 mg every 6 hours when necessary for nausea or vomiting Preventative: Benadryl 25 mg every 4 hours when necessary for itching, Sydni- Colace 2 tabs twice a day when necessary for constipation, Tylenol 650 mg every 4 hours when necessary for fever (Ethan Mcelroy MD R1) Problem Qualifiers (1) Femoral distal fracture: Qualified Code: S72.401A - Closed fracture of distal end of right femur, unspecified fracture morphology, initial encounter (2) Trimalleolar fracture: Qualified Code: S82.851A - Trimalleolar fracture, right, closed, initial encounter Ethan Mcelroy MD R1 Oct 16, 2016 12:18 Rosa Shafer MD Oct 16, 2016 19:20
[2016-10-16] MEDS: SODIUM CHLORIDE 0.9% IV SCH ×2 (12:30→13:00)
[2016-10-16] MEDS: TRANEXAMIC ACID IV SCH ×2 (12:30→13:00)
[2016-10-16] MEDS ORDERED: SODIUM CHLORIDE 0.9% FLUSH 5 ML FLUSH IVF PRN (13:30)
[2016-10-16] MEDS ORDERED: Post-op Orders (for Pharmacy) MISC XX ONE (13:30)
[2016-10-16] MEDS ORDERED: NALOXONE HCL 0.4 MG/ML AMP IV PRN (13:30)
--- NOTE | 2016-10-16 13:35 | PD.OP ---
cc: Zachary Morin MD Operative Report Date of Surgery: Oct 16, 2016 Preoperative Diagnosis: Right distal femur supracondylar fracture and right ankle fractures Postoperative Diagnosis: Procedure: Open reduction internal fixation right distal femur, open reduction internal fixation right fibula Anesthesia: Gen. Surgeon: Zachary Morin Net Trainer(s): Christo Weiss PA-C The surgical procedure was assisted by my physician accounting assistant. My P.A. presence was necessary throughout this case for the manipulation and positioning of the surgical extremity. My P.A. was assisting me throughout the duration of this procedure. The skill set of a physician accounting assistant was medically necessary to complete this procedure. During the surgical case the surgical services tech was working at the back table and the physician accounting assistant was directly assisting me. Operation and Findings: Bob was seen and evaluated preoperatively. He was found to have right distal femur fracture and right ankle fractures. Informed consent was obtained , operative site was marked. Patient was brought to the OR, placed on OR table , and given IV sedation with GETA. IV antibiotics were administered and timeout procedure was performed. The operative leg was prepped with alcohol, followed with Hibiclens, draped in usual sterile fashion. A timeout procedure was performed. The procedure began with a 5-inch incision over the lateral aspect of the distal femur. Subcutaneous tissue was dissected with Bovie. Iliotibial band was split in line with fibers. At this point the fracture was visualized. Traction was applied. Fracture was manipulated. The fracture reduced into excellent alignment. Steinmann pins were used to hold provisional fixation. At this point attention was turned to plate placement. A lateral condylar plate was selected and attached to the insertion handle jig. The plate was placed underneath the vastus lateralis. Steinmann pins were used to hold the plate to bone. Multiplanar fluoroscopy confirmed appropriate placement of plate. Multiple 4.5 cortical screws were now placed in percutaneous fashion through the plate. The plate was compressed to bone. Multiple locking screws were now placed in the distal segment of the distal femur. Additional locking screws were placed into the femoral shaft. All screws were predrilled and premeasured for appropriate length. Final fluoroscopy revealed excellent alignment of fracture with well-placed hardware. Wound was thoroughly irrigated. Fascia was closed with #1 Vicryl. Subcutaneous tissue was closed with 3-0 Vicryl. Skin was closed with tia. Next attention was turned towards the right ankle. Procedure began with a 4 inch incision over the distal fibula. Subcutaneous tissues dissected with Bovie. Fracture site was visualized. Fracture was now carefully reduced. Fracture keyed into excellent alignment. Fracture tenaculums were used to hold reduction. Multiplanar fluoroscopy revealed excellent alignment of fracture. A 6-hole one third tubular Synthes plate was selected. Plate was provisionally held the bone with K wires. Fluoroscopy confirmed plate placement. 3.5 cortical screws were used to compress plate to bone. Multiple screws were placed on each side of the fracture. Fluoroscopy confirmed excellent of fracture with well-placed hardware. Next attention was turned towards the syndesmosis. The syndesmosis was gently stressed. The ankle was externally rotated. There was no widening of the medial clear space and syndesmosis. There was a very small medial malleolus fracture and posterior talus fractures. These fractures were well aligned and appeared to be stable with stress exam. Decision was made to treat these fractures nonoperatively. Next the wound was thoroughly irrigated with sterile saline. Subcutaneous tissues closed with 3-0 Vicryl. Skin was closed with 3-0 nylon. Sterile dressings were applied. Patient was placed into a well molded well-padded splint. Patient was awakened and transferred to recovery room in stable condition. Needle and sponge counts were correct. Zachary Morin MD Oct 16, 2016 13:35
--- NOTE | 2016-10-16 13:58 | MB ---
cc: ZACHARY WINSTON DATE OF CONSULTATION: 10/16/2016 REASON FOR CONSULTATION: Right distal femur fracture and right ankle fractures. CONSULTING PHYSICIAN: Dr. Rosa Shafer. HISTORY OF PRESENT ILLNESS: Bob is a 60-year-old male who has a history of high cholesterol, hypertension and type 2 diabetes. He states that he got up to go to the bathroom when he fell. He states that the floor was wet. He had immediate right leg and ankle pain. He was unable to stand or ambulate. He presented to the emergency room where x-rays revealed a comminuted right distal femur fracture as well as a right ankle trimalleolar fracture. He is currently awake and alert on the orthopedic floor. The pain is worse with movement and is improved with rest. He denies any dizziness, syncope or loss of consciousness. PAST MEDICAL HISTORY / ILLNESSES: 1. Hypertension. 2. Type 2 diabetes. 3. Neuropathy. 4. High cholesterol. 5. Osteoporosis. PAST SURGICAL HISTORY: 1. Open reduction internal fixation of elbow. 2. Right knee arthroscopy. ALLERGIES: NO KNOWN DRUG ALLERGIES. MEDICATIONS: Please see the electronic medical record for a complete list of inpatient medications. This was reviewed. FAMILY HISTORY: Family history is positive for diabetes and hypertension. SOCIAL HISTORY: The patient lives in [place]. He was visiting [facility] for the races. 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 He drinks alcohol occasionally. REVIEW OF SYSTEMS: The patient denies headache, visual changes, neck pain, chest pain, shortness of breath, abdominal pain, nausea or vomiting or recent weight loss. He complains of right knee and right ankle pain. PHYSICAL EXAMINATION: GENERAL: The patient is a well-developed, well-nourished 60-year male in no acute distress. He is awake and alert. He is alert and oriented x3. VITAL SIGNS: Temperature 98.0, pulse 99, respirations 18, blood pressure 193/98, O2 sat 99% on room air. HEAD, EYES, EARS, NOSE, THROAT: The patient is normocephalic. Pupils are equal. NECK: Neck is soft, nontender. Trachea is midline. ABDOMEN: Soft, nontender, nondistended. EXTREMITIES: Examination of the right and left upper extremities reveals no pain with shoulder, elbow or wrist motion. Skin is intact bilaterally. Forearm compartments are soft. Radial pulses are palpable. Custom [employer] strength is +5 bilaterally. Examination of the left leg reveals no significant pain with hip, knee or ankle motion. Skin is intact. Dorsalis pedis pulse is palpable. Sensation is intact. He does have some diminished sensation both feet secondary to diabetic neuropathy. Examination of the left leg reveals no tenderness about his hip. He is diffusely tender around his knee and ankle. He has pain with any knee or ankle motion. Calf and thigh compartments are soft. Skin is intact. Dorsalis pedis pulse is palpable. X-RAYS: X-rays of the right knee were reviewed. X-rays reveal a comminuted displaced right distal femur supracondylar fracture. X-rays of the right ankle were reviewed. X-rays reveal a minimally displaced right ankle trimalleolar fracture. IMPRESSION: 1. Displaced right distal femur fracture. 2. Right ankle trimalleolar fracture. PLAN: Treatment options were discussed with the patient. At this point, I would recommend open reduction internal fixation of right distal femur and right ankle. The risks of surgery include bleeding, infection, injury to arteries, nerves and blood vessels, nonunion, malunion, painful hardware, knee stiffness, knee arthritis, ankle stiffness, loss of motion as well as medical complications including blood clot, stroke, heart attack and . All questions were answered. I will plan on surgery today. A mid-level provider in my office (nurse practitioner or physician insurance assistant) may see this patient on follow-up visits and continue to implement the objectives of this plan including: Starting or adjusting medications, injections , cast application, orthotics, brace application, physical therapy, radiological studies (including x-ray, MRI, CT, ultrasound, bone scan), vascular studies, neurologic studies, specialist consultation, and proceeding with surgical management, as appropriate. Zachary MD CLAIRE Landa/MAREN /1:38 PM /1:50 PM CRISTIANO
[2016-10-16] MEDS ORDERED: METOPROLOL TARTRATE 5 MG/5 ML VIAL ONE (14:14)
[2016-10-16] MEDS ORDERED: DO NOT ADM ANY ANTICOAGULANT DRUGS XX PRN (14:15)
--- NOTE | 2016-10-16 14:28 | RADRPT ---
EXAM DATE/TIME: 10/16/2016 13:08 [facility] COMPARISON: ANKLE RIGHT LIMITED (AP&LAT), October 15, 2016, 8:25. INDICATIONS : ORIF right ankle. MEDICAL HISTORY : None. SURGICAL HISTORY : None. ENCOUNTER: Subsequent ACUITY: 2 days PAIN SCORE: Non-responsive. LOCATION: Right ankle. FINDINGS: Two view examination was performed of the right ankle. Status post internal fixation of fractures in volving the distal fibula. There is good position and alignment of the fracture fragments. The hardwa re is intact. There is good alignment at the mortise joint. CONCLUSION: Good position and alignment on this postoperative study. Jb Gee MD on October 16, 2016 at 14:26 Board Certified Radiologist. This report was verified electronically.
--- NOTE | 2016-10-16 14:28 | RADRPT ---
EXAM DATE/TIME: 10/16/2016 13:08 [facility] COMPARISON: No previous studies available for comparison. INDICATIONS : ORIF right distal femur. MEDICAL HISTORY : None. SURGICAL HISTORY : None. ENCOUNTER: Subsequent ACUITY: 2 days PAIN SCORE: Non-responsive. LOCATION: Right distal femur. FINDINGS: Two view examination of the right femur demonstrates internal fixation of the distal femur. There dell ears to be good position alignment of the fracture fragments. The hardware is grossly intact. CONCLUSION: Good position and alignment on this postoperative study. Jb Gee MD on October 16, 2016 at 14:27 Board Certified Radiologist. This report was verified electronically.
[2016-10-16] MEDS ORDERED: *LABETALOL HCL 100 MG/20 ML VIAL PERIprocedural Use ONLY ONE (14:34)
[2016-10-16] MEDS ORDERED: *morphine SULFATE 8 MG/ML PERIprocedure ONLY ONE (14:34)
[2016-10-16] MEDS ORDERED: ERGOCALCIFEROL (VIT D2) 50,000 UNIT CAP PO ONE (16:00)
[2016-10-16] MEDS: ceFAZolin 2 GM PREMIX 50 ML IV SCH (16:18)
[2016-10-16] MEDS: CALCIUM/VITAMIN D 250 MG/125 U TAB PO SCH (16:19)
[2016-10-16] MEDS: ONDANSETRON HCL 4 MG/2 ML VIAL IVP PRN (16:19)
--- NOTE | 2016-10-16 16:53 | PD.ORT.PN ---
Subjective Subjective Remarks POD 0 s/p ORIF right distal femur and right ankle Objective Vitals Vital Signs Date Time Temp Pulse Resp B/P Pulse Ox O2 Delivery O2 Flow Rate FiO2 10/16/16 15:00 98.7 70 14 129/75 99 Nasal Cannula 2 10/16/16 14:45 80 14 150/92 100 Nasal Cannula 2 10/16/16 14:30 98 14 188/107 97 Nasal Cannula 2 10/16/16 14:15 123 14 184/96 99 Nasal Cannula 2 10/16/16 14:10 98.7 129 14 201/102 99 Nasal Cannula 4 10/16/16 10:06 156/90 10/16/16 08:00 98.0 99 18 193/98 99 10/16/16 04:00 98.9 102 18 141/95 98 10/16/16 00:00 100.0 97 18 152/82 99 10/15/16 20:00 97.7 105 19 165/86 98 I/O 10/15/16 10/15/16 10/15/16 10/16/16 10/16/16 10/16/16 06:59 14:59 22:59 06:59 14:59 22:59 Intake Total 720 ml 0 ml 1400 ml Output Total 400 ml 450 ml Balance 720 ml -400 ml 950 ml Intake Oral 720 ml 0 ml Other 1400 ml Output Urine Total 400 ml 300 ml Estimated Blood Loss 150 ml # Voids 4 # Bowel Movements 0 0 Result Diagram: 10/16/16 0613 10/16/16 0613 Imaging Last 24 hours Impressions Chest X-Ray 10/15/16 0857 Signed Impressions: Service Date/Time: September 09:08 - CONCLUSION: Questionable opacity or pleural thickening at the right apex. Recommend further characterization with noncontrast CT thorax. Anjel Christensen MD Objective Remarks RLE: dressings clean and dry. intact. + knee brace. + short leg splint Assessment & Plan Assessment and Plan 1) Right Distal Femur Fx and Trung Ankle Fx s/p ORIF - POD 0 -NWB RLE -maintain splint at all times -knee brace except for PT -PROM 0-90 -no quad sets or leg lifts -CM for rehab placement as patient lives alone -plan for DC to rehab potentially wednesday -f/u with Paul or ALIZA in 2 weeks Christo Weiss Oct 16, 2016 16:53
[2016-10-16] MEDS: diphenhydrAMINE HCL 50 MG/ML VIAL IV PRN (21:28)
[2016-10-16] MEDS: DOCUSATE SODIUM 50 MG/SENNA 8.6 MG TAB PO SCH (21:29)
[2016-10-17] VITALS (7 sets, daily range): BP systolic 136–162; BP diastolic 68–81; PULSE 91–97; RESP 16–20; TEMP 98–99.8; O2SAT 97–99
[2016-10-17] MEDS: ceFAZolin 2 GM PREMIX 50 ML IV SCH ×4 (00:22→23:06)
[2016-10-17] MEDS: VANCOMYCIN INJ 1,000 MG in SODIUM CHLOR 0.9% 250 ML INJ 250 ML IV SCH ×3 (00:23→23:42)
[2016-10-17] MEDS: SODIUM CHLORID 0.9% 500 ML IV SCH (00:25)
[2016-10-17] MEDS: LACTATED RINGER'S 1000 ML INJ 1,000 ML IV SCH ×3 (01:59→23:03)
[2016-10-17] MEDS: ACETAMINOPHEN/HYDROcodone 325 MG/10 MG TAB PO PRN ×4 (02:00→18:06)
[2016-10-17] MEDS: diphenhydrAMINE HCL 50 MG/ML VIAL IV PRN (02:35)
[2016-10-17 05:49] LABS: HEMATOCRIT 24.8 % (39.0-51.0); MEAN CELL VOLUME 85.7 FL (80.0-100.0); MEAN CORPUSCULAR HGB CONC 33.8 % (32.0-36.0); PLATELET COUNT 155 TH/MM3 (150-450); RED BLOOD COUNT 2.89 MIL/MM3 (4.50-5.90); RED CELL DISTRIBUTION WIDTH 13.3 % (11.6-17.2); REVIEW FLAG FINAL; WHITE BLOOD COUNT 11.5 TH/MM3 (4.0-11.0)
[2016-10-17 06:04] LABS: BICARBONATE 26.7 MEQ/L (21.0-32.0)
[2016-10-17] MEDS: INSULIN ASPART SUPPLEMENTAL SCALE SQ SCH ×4 (06:41→20:32)
[2016-10-17] MEDS: LACTATED RINGER'S 1000 ML IV SCH (07:45)
[2016-10-17] MEDS: DOCUSATE SODIUM 50 MG/SENNA 8.6 MG TAB PO SCH ×2 (09:00→20:32)
--- NOTE | 2016-10-17 09:04 | PD.ORT.PN ---
Subjective Subjective Remarks Patient comfortable. Pain controlled. Objective Vitals Vital Signs Date Time Temp Pulse Resp B/P Pulse Ox O2 Delivery O2 Flow Rate FiO2 10/17/16 03:33 99.4 92 18 136/73 97 10/17/16 00:00 99.1 91 16 138/74 97 10/16/16 20:00 96.9 81 18 144/77 98 10/16/16 17:00 98 21 10/16/16 16:00 97.8 82 18 162/92 97 10/16/16 16:00 97.8 82 18 162/92 97 10/16/16 15:00 98.7 70 14 129/75 99 Nasal Cannula 2 10/16/16 14:45 80 14 150/92 100 Nasal Cannula 2 10/16/16 14:30 98 14 188/107 97 Nasal Cannula 2 10/16/16 14:15 123 14 184/96 99 Nasal Cannula 2 10/16/16 14:10 98.7 129 14 201/102 99 Nasal Cannula 4 10/16/16 10:06 156/90 I/O 10/16/16 10/16/16 10/16/16 10/17/16 10/17/16 10/17/16 07:00 15:00 23:00 07:00 15:00 23:00 Intake Total 0 ml 1880 ml 240 ml 240 ml Output Total 400 ml 950 ml 250 ml 450 ml Balance -400 ml 930 ml -10 ml -210 ml Intake Oral 0 ml 480 ml 240 ml 240 ml Other 1400 ml Output Urine Total 400 ml 800 ml 250 ml 450 ml Estimated Blood Loss 150 ml # Voids 2 # Bowel Movements 0 0 0 Result Diagram: 10/17/16 0435 10/17/16 0435 Imaging Last 24 hours Impressions Chest X-Ray 10/15/16 0857 Signed Impressions: Service Date/Time: September 09:08 - CONCLUSION: Questionable opacity or pleural thickening at the right apex. Recommend further characterization with noncontrast CT thorax. Anjel Christensen MD Objective Remarks RLE: dressings clean and dry. intact. + knee brace. + short leg splint Assessment & Plan Assessment and Plan 1) Right Distal Femur Fx and Trung Ankle Fx s/p ORIF - POD 1 -NWB RLE -maintain splint at all times -knee brace except for PT -PROM 0-90 -no quad sets or leg lifts -CM for rehab placement as patient lives alone (lives in [place], [place]) -plan for DC to rehab potentially wednesday or wednesday -f/u with Paul or ALIZA in 2 weeks - Dr. Marin present during patient assessment Clint Holcomb Oct 17, 2016 09:04
[2016-10-17] MEDS: CALCIUM/VITAMIN D 250 MG/125 U TAB PO SCH ×3 (09:38→16:08)
[2016-10-17] MEDS: THIAMINE HCL 100 MG TAB PO SCH (09:38)
[2016-10-17] MEDS: SODIUM CHLORIDE 0.9% FLUSH 5 ML FLUSH IVF SCH ×2 (09:38→20:33)
[2016-10-17] MEDS: FOLIC ACID 1 MG TAB PO SCH (09:38)
[2016-10-17] MEDS: SODIUM CHLORIDE 0.9% IV SCH (12:15)
[2016-10-17] MEDS: ENOXAPARIN SODIUM 40 MG/0.4 ML SYRINGE SQ SCH (12:15)
[2016-10-17] MEDS: TRANEXAMIC ACID IV SCH (12:15)
--- NOTE | 2016-10-17 12:29 | HHI.FPPN ---
Subjective Remarks No acute events overnight. Vital signs unremarkable. POD 1 ORIF right knee and ankle. This morning he reports that his pain is well-controlled and he is urinating without issues. Passing flatus but no BM. Patient has no physical concerns but is concerned about placement in terms of rehabilitation and getting back home to [place]. (Albertina Evans MD R2) Objective Vitals Vital Signs Date Time Temp Pulse Resp B/P Pulse Ox O2 Delivery O2 Flow Rate FiO2 10/17/16 10:53 99 21 10/17/16 08:00 98.9 92 16 155/80 97 10/17/16 03:33 99.4 92 18 136/73 97 10/17/16 00:00 99.1 91 16 138/74 97 10/16/16 20:00 96.9 81 18 144/77 98 10/16/16 17:00 98 21 10/16/16 16:00 97.8 82 18 162/92 97 10/16/16 16:00 97.8 82 18 162/92 97 10/16/16 15:00 98.7 70 14 129/75 99 Nasal Cannula 2 10/16/16 14:45 80 14 150/92 100 Nasal Cannula 2 10/16/16 14:30 98 14 188/107 97 Nasal Cannula 2 10/16/16 14:15 123 14 184/96 99 Nasal Cannula 2 10/16/16 14:10 98.7 129 14 201/102 99 Nasal Cannula 4 I/O 10/16/16 10/16/16 10/16/16 10/17/16 10/17/16 10/17/16 07:00 15:00 23:00 07:00 15:00 23:00 Intake Total 0 ml 1880 ml 240 ml 240 ml Output Total 400 ml 950 ml 250 ml 450 ml Balance -400 ml 930 ml -10 ml -210 ml Intake Oral 0 ml 480 ml 240 ml 240 ml Other 1400 ml Output Urine Total 400 ml 800 ml 250 ml 450 ml Estimated Blood Loss 150 ml # Voids 2 # Bowel Movements 0 0 0 (Albertina Evans MD R2) Result Diagram: 10/17/1643410/17/16434 Objective Remarks GEN: Well-developed, well-nourished patient. No acute distress. CV: Regular rate and rhythm without obvious murmurs LUNGS: Bilateral wheezes but with no accessory muscle use. Good air movement bilaterally. EXT: Right leg and bandage/splint from surgery. Able to move toes NEURO/PSYCH: Awake, alert. Appropriate insight and judgment. Normal speech ( Albertina Evans MD R2) A/P Assessment and Plan Mr. Marsh is a 60 y/o CM with a PMHx of HTN, HPLD, and T2DM who is s/p fall presenting to the ED with multiple right lower extremity fractures. Admitted for ORIF. Discharge Planning 1-2 days pending orthopedic clearance DW: Dr. Cazares (Albertina Evans MD R2) Attending Attestation Patient seen and examined. Case reviewed and discussed with the resident team. Agree with plan of care as discussed with me and documented in the resident note. appreciate case management and their help in talking to the family (Didi Cazares MD) Problem List: (1) Femoral distal fracture Status: Acute Plan: S/p mechanical fall without loss of consciousness shown to have closed distal femoral and trimalleolar fractures of the right lower extremity. ORIF on 10/16/16. -Calcium and vitamin D supplements, to be continued as outpatient -Vitamin D 50,000 unitsx1 Imaging: * Knee x-ray: Comminuted, impacted, displaced, and angulated fracture of the distal right femoral metaphyseal region. * Ankle x-ray: Trimalleolar ankle fracture with slight displacement of the fragments. Mild talonavicular joint subluxation. * Hip/pelvis x-ray: Unremarkable examination of the right hip. Orthopedic surgery consulted: Appreciate recommendations * NWB RLE * Plan for discharge to rehabilitation either Wednesday or Wednesday * Follow up with Dr. Miller in 2wks (2) Trimalleolar fracture Status: Acute Plan: Please see plan as above (3) CKD (chronic kidney disease) Status: Chronic Plan: Patient likely has some chronic kidney disease as he appears to have a chronically elevated creatinine but electrolytes are otherwise unremarkable. -Closely monitor (4) Nutrition, metabolism, and development symptoms Status: Acute Plan: Diet: Regular Fluids: None Electrolytes: Unremarkable DVT prophylaxis: Lovenox GI prophylaxis: Not indicated Chronic conditions: * HTN: Patient unaware of home dose of HCTZ. Started 12.5mg which may need to be increased * HLD: Patient unaware of home dose of atorvastatin. Started 20 mg daily. * DM: Low-dose sliding scale, oral medications held (Albertina Evans MD R2) Problem Qualifiers (1) Femoral distal fracture: (2) Trimalleolar fracture: Albertina Evans MD R2 Oct 17, 2016 12:28 Didi Czaares MD Oct 19, 2016 14:27
[2016-10-17] MEDS: HYDROCHLOROTHIAZIDE 12.5 MG CAP PO SCH (13:25)
[2016-10-17] MEDS ORDERED: ZOLPIDEM TARTRATE 5 MG TAB PO PRN (16:00)
[2016-10-17] MEDS: MORPHINE SULFATE 4 MG/ML INJ IV PUSH PRN ×3 (16:44→23:41)
[2016-10-18] VITALS (7 sets, daily range): BP systolic 140–185; BP diastolic 74–85; PULSE 90–105; RESP 18–20; TEMP 98.2–99.9; O2SAT 96–98
[2016-10-18] MEDS ORDERED: BACITRACIN TOP OINT 15 GM TUBE TOP PRN (01:15)
[2016-10-18] MEDS: ACETAMINOPHEN/HYDROcodone 325 MG/10 MG TAB PO PRN ×3 (01:17→18:46)
[2016-10-18] MEDS: MORPHINE SULFATE 4 MG/ML INJ IV PUSH PRN ×3 (05:49→22:52)
[2016-10-18] MEDS: ONDANSETRON HCL 4 MG/2 ML VIAL IVP PRN ×3 (05:49→18:45)
[2016-10-18] MEDS: INSULIN ASPART SUPPLEMENTAL SCALE SQ SCH ×4 (06:22→17:36)
[2016-10-18] MEDS: LACTATED RINGER'S 1000 ML IV SCH (07:45)
[2016-10-18 07:50] LABS: ALT (GPT) 9 U/L (12-78); ANION GAP 7 MEQ/L (5-15); AST (GOT) 11 U/L (15-37); BICARBONATE 29.2 MEQ/L (21.0-32.0); BLOOD UREA NITROGEN 22 MG/DL (7-18); CHLORIDE 105 MEQ/L (98-107); GLOMERULAR FILTRATION RATE 41 ML/MIN (>89); POTASSIUM 3.6 MEQ/L (3.5-5.1); SODIUM (NA) 141 MEQ/L (136-145)
[2016-10-18 07:52] LABS: ALKALINE PHOSPHATASE 94 U/L (45-117); TOTAL BILIRUBIN ADULT 0.3 MG/DL (0.2-1.0)
[2016-10-18 07:55] LABS: HEMATOCRIT 24.3 % (39.0-51.0); MEAN CELL VOLUME 85.3 FL (80.0-100.0); MEAN CORPUSCULAR HEMOGLOBIN 28.7 PG (27.0-34.0); MEAN CORPUSCULAR HGB CONC 33.7 % (32.0-36.0); PLATELET COUNT 166 TH/MM3 (150-450); RED BLOOD COUNT 2.85 MIL/MM3 (4.50-5.90); RED CELL DISTRIBUTION WIDTH 13.3 % (11.6-17.2); REVIEW FLAG FINAL; WHITE BLOOD COUNT 8.5 TH/MM3 (4.0-11.0)
[2016-10-18] MEDS: ceFAZolin 2 GM PREMIX 50 ML IV SCH (08:48)
[2016-10-18] MEDS: FOLIC ACID 1 MG TAB PO SCH (08:49)
[2016-10-18] MEDS: THIAMINE HCL 100 MG TAB PO SCH (08:49)
[2016-10-18] MEDS: HYDROCHLOROTHIAZIDE 12.5 MG CAP PO SCH (08:49)
[2016-10-18] MEDS: CALCIUM/VITAMIN D 250 MG/125 U TAB PO SCH ×3 (08:49→17:36)
[2016-10-18] MEDS: DOCUSATE SODIUM 50 MG/SENNA 8.6 MG TAB PO SCH ×2 (08:49→22:52)
[2016-10-18] MEDS: ATORVASTATIN 20 MG TAB PO SCH (08:49)
[2016-10-18] MEDS: SODIUM CHLORIDE 0.9% FLUSH 5 ML FLUSH IVF SCH (08:50)
--- NOTE | 2016-10-18 09:16 | HHI.FPPN ---
Subjective Remarks Patient seen and examined this morning by Medical team. No acute events overnight with stable vital signs. Patient did have a bowel movement overnight, but did state he had difficulty while going. Counseled patient on laxative use and that his difficulty is likely due to his pain management. He has no complaints this morning and denies any fevers, chills, SOB, chest pain, NVD, or calf tenderness on his non-operative leg. His pain is controlled and has been compliant with his incentive spirometer. (Ethan Mcelroy MD R1) Objective Vitals Vital Signs Date Time Temp Pulse Resp B/P Pulse Ox O2 Delivery O2 Flow Rate FiO2 10/18/16 05:20 98.8 92 18 156/74 96 10/18/16 00:19 99.7 90 20 147/75 98 10/17/16 20:00 99.8 94 20 137/68 97 10/17/16 16:49 18 10/17/16 16:00 99.1 97 18 162/81 97 10/17/16 13:14 16 10/17/16 12:00 98.0 94 16 137/75 98 10/17/16 10:53 99 21 I/O 10/17/16 10/17/16 10/17/16 10/18/16 10/18/16 10/18/16 07:00 15:00 23:00 07:00 15:00 23:00 Intake Total 240 ml 480 ml 480 ml Output Total 450 ml 600 ml 350 ml 500 ml Balance -210 ml -120 ml 130 ml -500 ml Intake Oral 240 ml 480 ml 480 ml Output Urine Total 450 ml 600 ml 350 ml 500 ml # Voids 2 # Bowel Movements 0 0 0 (Ethan Mcelroy MD R1) Result Diagram: 10/18/16 0650 10/18/16 0650 Objective Remarks GEN: Well-developed, well-nourished patient. No acute distress. CV: Regular rate and rhythm without obvious murmurs LUNGS: Bilateral wheezes but with no accessory muscle use. Good air movement bilaterally. EXT: Right leg and bandage/splint from surgery. Able to move toes. GI: Soft, nontender, nondistended with +BS. NEURO/PSYCH: Awake, alert. Appropriate insight and judgment. Normal speech ( Ethan Mcelroy MD R1) A/P Assessment and Plan Mr. Salma is a 60 y/o CM with a PMHx of HTN, HPLD, and T2DM who is s/p fall presenting to the ED with multiple right lower extremity fractures. Admitted for ORIF. Discharge Planning 1-2 days pending orthopedic clearance DW: Dr. Cazares (Ethan Mcelroy MD R1) Attending Attestation Patient seen and examined. Case reviewed and discussed with the resident team. Agree with plan of care as discussed with me and documented in the resident note. appreciate all the help from case management with his post hospital care ( Didi Cazares MD) Problem List: (1) Femoral distal fracture Status: Acute Plan: S/p mechanical fall without loss of consciousness shown to have closed distal femoral and trimalleolar fractures of the right lower extremity. ORIF on 10/16/16. -Calcium and vitamin D supplements, to be continued as outpatient -Vitamin D 50,000 unitsx1 Imaging: * Knee x-ray: Comminuted, impacted, displaced, and angulated fracture of the distal right femoral metaphyseal region. * Ankle x-ray: Trimalleolar ankle fracture with slight displacement of the fragments. Mild talonavicular joint subluxation. * Hip/pelvis x-ray: Unremarkable examination of the right hip. Orthopedic surgery consulted: Appreciate recommendations * NWB RLE * Plan for discharge to rehabilitation either Wednesday or Wednesday * Follow up with Dr. Miller in 2wks * Case management assisting with rehab placement until his f/u appointment with Ortho prior to departing back to [place], appreciate assistance. (2) Trimalleolar fracture Status: Acute Plan: Please see plan as above (3) CKD (chronic kidney disease) Status: Chronic Plan: Patient likely has some chronic kidney disease as he appears to have a chronically elevated creatinine but electrolytes are otherwise unremarkable. -Closely monitor -Nursing order to encourage PO fluids placed (4) Nutrition, metabolism, and development symptoms Status: Acute Plan: Diet: Regular Fluids: None, encourage PO fluids Electrolytes: Unremarkable DVT prophylaxis: Lovenox GI prophylaxis: Not indicated Chronic conditions: * HTN: Patient unaware of home dose of HCTZ. Started 12.5mg which may need to be increased * HLD: Patient unaware of home dose of atorvastatin. Started 20 mg daily. * DM: Low-dose sliding scale, oral medications held (Ethan Mcelroy MD R1) Problem Qualifiers (1) Femoral distal fracture: (2) Trimalleolar fracture: Ethan Mcelroy MD R1 Oct 18, 2016 09:16 Didi Cazares MD Oct 19, 2016 14:43
--- NOTE | 2016-10-18 11:47 | PD.ORT.PN ---
Subjective Subjective Remarks Comfortable Objective Vitals Vital Signs Date Time Temp Pulse Resp B/P Pulse Ox O2 Delivery O2 Flow Rate FiO2 10/18/16 07:00 98.2 90 18 157/78 97 10/18/16 05:20 98.8 92 18 156/74 96 10/18/16 00:19 99.7 90 20 147/75 98 10/17/16 20:00 99.8 94 20 137/68 97 10/17/16 16:49 18 10/17/16 16:00 99.1 97 18 162/81 97 10/17/16 13:14 16 10/17/16 12:00 98.0 94 16 137/75 98 I/O 10/17/16 10/17/16 10/17/16 10/18/16 10/18/16 10/18/16 07:00 15:00 23:00 07:00 15:00 23:00 Intake Total 240 ml 480 ml 480 ml Output Total 450 ml 600 ml 350 ml 500 ml Balance -210 ml -120 ml 130 ml -500 ml Intake Oral 240 ml 480 ml 480 ml Output Urine Total 450 ml 600 ml 350 ml 500 ml # Voids 2 # Bowel Movements 0 0 0 Result Diagram: 10/18/16 0650 10/18/16 0650 Imaging Last 24 hours Impressions Chest X-Ray 10/15/16 0857 Signed Impressions: Service Date/Time: September 09:08 - CONCLUSION: Questionable opacity or pleural thickening at the right apex. Recommend further characterization with noncontrast CT thorax. Anjel Christensen MD Objective Remarks RLE: dressings clean and dry. intact. + knee brace. + short leg splint Toes NVI Assessment & Plan Assessment and Plan 1) Right Distal Femur Fx and Trung Ankle Fx s/p ORIF - POD #2 -NWB RLE -maintain splint at all times -knee brace except for PT -PROM 0-90 -no quad sets or leg lifts -CM for rehab placement as patient lives alone (lives in [place], [place]) -plan for DC to rehab potentially wednesday or wednesday -f/u with Paul or ALIZA in 1 1/2 weeks - SNF placement Meek Marin MD Oct 18, 2016 11:47
[2016-10-18] MEDS: ENOXAPARIN SODIUM 40 MG/0.4 ML SYRINGE SQ SCH (13:01)
[2016-10-18] MEDS: LACTATED RINGER'S 1000 ML INJ 1,000 ML IV SCH (15:29)
[2016-10-19 03:35] VITALS: BP 123/90; PULSE 104; RESP 17; TEMP 98; O2SAT 99
[2016-10-19] MEDS: INSULIN ASPART SUPPLEMENTAL SCALE SQ SCH ×4 (07:00→21:36)
[2016-10-19 07:30] LABS: BICARBONATE 25.1 MEQ/L (21.0-32.0); POTASSIUM 3.8 MEQ/L (3.5-5.1)
[2016-10-19] MEDS: LACTATED RINGER'S 1000 ML IV SCH (07:45)
[2016-10-19 08:00] VITALS: BP 172/85; PULSE 109; RESP 15; TEMP 99.5; O2SAT 99
[2016-10-19] MEDS: HYDROCHLOROTHIAZIDE 12.5 MG CAP PO SCH (09:24)
[2016-10-19] MEDS: FOLIC ACID 1 MG TAB PO SCH (09:24)
[2016-10-19] MEDS: ONDANSETRON HCL 4 MG/2 ML VIAL IVP PRN (09:24)
[2016-10-19] MEDS: DOCUSATE SODIUM 50 MG/SENNA 8.6 MG TAB PO SCH ×2 (09:24→21:27)
[2016-10-19] MEDS: ATORVASTATIN 20 MG TAB PO SCH (09:24)
[2016-10-19] MEDS: CALCIUM/VITAMIN D 250 MG/125 U TAB PO SCH ×3 (09:24→18:07)
[2016-10-19] MEDS: THIAMINE HCL 100 MG TAB PO SCH (09:24)
[2016-10-19] MEDS: ACETAMINOPHEN/HYDROcodone 325 MG/10 MG TAB PO PRN ×3 (09:25→21:42)
[2016-10-19] MEDS: SODIUM CHLORIDE 0.9% FLUSH 5 ML FLUSH IVF SCH (09:26)
--- NOTE | 2016-10-19 11:04 | HHI.FPPN ---
Subjective Remarks Patient seen and examined. No acute events overnight. Patient hypertensive, tachycardic, with temperature 99.9 degrees overnight. Noted to be diaphoretic with tachycardia during exam this morning. When asked about his pain, he initially denies, but then does state he is in quite a bit of pain which is likely related to his altered vital signs. He last received his Kimball at 1846 and his IV morphine at 2252. He was nauseous throughout the night and last received his Zofran at 1845. He states that he has tried to avoid the medications because of the nausea and risk of dependence. I counseled him that the medications are there to help him and that we have medications that can also help with his nausea. He did not have a BM yesterday, but did the day before and continues to pass gas. Otherwise he has no complaints, and denies any fevers, chills, SOB, chest pain, NVD, or calf tenderness. (Ethan Mcelroy MD R1) Objective Vitals Vital Signs Date Time Temp Pulse Resp B/P Pulse Ox O2 Delivery O2 Flow Rate FiO2 10/19/16 08:00 99.5 109 15 172/85 99 10/19/16 03:35 98.0 104 17 123/90 99 10/18/16 23:40 98.9 105 18 155/74 96 10/18/16 20:05 99.9 101 18 185/81 97 10/18/16 15:30 98.7 98 18 165/80 98 10/18/16 11:10 98.9 102 18 140/85 98 I/O 10/18/16 10/18/16 10/18/16 10/19/16 10/19/16 10/19/16 07:00 15:00 23:00 07:00 15:00 23:00 Intake Total 640 ml 720 ml 480 ml Output Total 500 ml 400 ml Balance -500 ml 640 ml 720 ml 80 ml Intake Oral 640 ml 720 ml 480 ml Output Urine Total 500 ml 400 ml # Voids 2 4 # Bowel Movements 0 0 0 0 (Ethan Mcelroy MD R1) Result Diagram: 10/18/16 0650 10/19/16 0609 Objective Remarks GEN: Well-developed, well-nourished patient. No acute distress. CV: Mildly tachycardic with regular rhythm. No MGR appreciated. LUNGS: Bilateral wheezes but with no accessory muscle use. Good air movement bilaterally. EXT: Right leg and bandage/splint from surgery. Able to move toes with sensation. GI: Soft, nontender, nondistended with +BS. NEURO/PSYCH: Awake, alert. Appropriate insight and judgment. Normal speech. ( Ethan Mcelroy MD R1) A/P Assessment and Plan Mr. Marsh is a 60 y/o CM with a PMHx of HTN, HPLD, and T2DM who is s/p fall presenting to the ED with multiple right lower extremity fractures. Admitted for ORIF and is POD #3. Discharge Planning 1-2 days pending orthopedic clearance DW: Dr. Cazares (Ethan Mcelroy MD R1) Attending Attestation Patient seen and examined. Case reviewed and discussed with the resident team. Agree with plan of care as discussed with me and documented in the resident note. agree with encouraging enough pain meds to sleep and feel comfortable (Didi Cazares MD) Problem List: (1) Femoral distal fracture Status: Acute Plan: S/p mechanical fall without loss of consciousness shown to have closed distal femoral and trimalleolar fractures of the right lower extremity. ORIF on 10/16/16. -Calcium and vitamin D supplements, to be continued as outpatient -Vitamin D 50,000 unitsx1 Imaging: * Knee x-ray: Comminuted, impacted, displaced, and angulated fracture of the distal right femoral metaphyseal region. * Ankle x-ray: Trimalleolar ankle fracture with slight displacement of the fragments. Mild talonavicular joint subluxation. * Hip/pelvis x-ray: Unremarkable examination of the right hip. Orthopedic surgery consulted: Appreciate recommendations * NWB RLE * Plan for discharge to rehabilitation either today or tomorrow to rehab. * Follow up with Dr. Miller in 2wks * Case management assisting with rehab placement until his f/u appointment with Ortho prior to departing back to [place], appreciate assistance. (2) Trimalleolar fracture Status: Acute Plan: Please see plan as above (3) CKD (chronic kidney disease) Status: Chronic Plan: Patient likely has some chronic kidney disease as he appears to have a chronically elevated creatinine but electrolytes are otherwise unremarkable. -Closely monitor -Nursing order to encourage PO fluids placed (4) Nutrition, metabolism, and development symptoms Status: Acute Plan: Diet: Regular Fluids: None, encourage PO fluids Electrolytes: Unremarkable DVT prophylaxis: Lovenox GI prophylaxis: Ranitidine BID Chronic conditions: * HTN: Patient unaware of home dose of HCTZ. Started 12.5mg, but will increase to 25mg as patient remains hypertensive. * HLD: Patient unaware of home dose of atorvastatin. Started 20 mg daily. * DM: Low-dose sliding scale, oral medications held (Ethan Mcelroy MD R1) Problem Qualifiers (1) Femoral distal fracture: (2) Trimalleolar fracture: Ethan Mcelroy MD R1 Oct 19, 2016 11:04 Didi Cazares MD Oct 19, 2016 14:28
[2016-10-19 12:00] VITALS: BP 149/89; PULSE 110; RESP 18; TEMP 99.2; O2SAT 98
[2016-10-19] MEDS: ENOXAPARIN SODIUM 40 MG/0.4 ML SYRINGE SQ SCH (13:52)
[2016-10-19] MEDS: FAMOTIDINE 20 MG TAB PO SCH ×2 (13:56→21:27)
[2016-10-19 16:00] VITALS: BP 152/92; PULSE 105; RESP 18; TEMP 97.6; O2SAT 98
[2016-10-19 20:30] VITALS: BP 158/80; PULSE 112; RESP 18; TEMP 99.8; O2SAT 97
[2016-10-19] MEDS: ONDANSETRON ODT 4 MG TAB PO PRN (21:26)
[2016-10-20] VITALS (7 sets, daily range): BP systolic 105–183; BP diastolic 75–96; PULSE 88–116; RESP 16–20; TEMP 96.9–99.4; O2SAT 99–100
[2016-10-20] MEDS: ACETAMINOPHEN/HYDROcodone 325 MG/10 MG TAB PO PRN ×3 (05:58→21:44)
[2016-10-20] MEDS: INSULIN ASPART SUPPLEMENTAL SCALE SQ SCH ×4 (06:01→21:59)
--- NOTE | 2016-10-20 06:43 | PD.ORT.PN ---
Subjective Subjective Remarks Resting comfortably with pain controlled Objective Vitals Vital Signs Date Time Temp Pulse Resp B/P Pulse Ox O2 Delivery O2 Flow Rate FiO2 10/20/16 00:00 99.2 88 18 148/83 10/19/16 20:30 99.8 112 18 158/80 97 10/19/16 16:00 97.6 105 18 152/92 98 10/19/16 12:00 99.2 110 18 149/89 98 10/19/16 08:00 99.5 109 15 172/85 99 I/O 10/19/16 10/19/16 10/19/16 10/20/16 10/20/16 10/20/16 07:00 15:00 23:00 07:00 15:00 23:00 Intake Total 480 ml 480 ml 240 ml Output Total 400 ml 750 ml 350 ml Balance 80 ml -270 ml -110 ml Intake Oral 480 ml 480 ml 240 ml Output Urine Total 400 ml 750 ml 350 ml # Voids 2 # Bowel Movements 0 0 Result Diagram: 10/18/16 0650 10/19/16 0609 Imaging Last 24 hours Impressions Chest X-Ray 10/15/16 0857 Signed Impressions: Service Date/Time: September 09:08 - CONCLUSION: Questionable opacity or pleural thickening at the right apex. Recommend further characterization with noncontrast CT thorax. Anjel Christensen MD Objective Remarks RLE: dressings clean and dry. intact. + knee brace. + short leg splint Toes NVI Assessment & Plan Assessment and Plan 1) Right Distal Femur Fx and Trung Ankle Fx s/p ORIF - POD #4 -NWB RLE -maintain splint at all times -knee brace except for PT -PROM 0-90 -no quad sets or leg lifts -CM for rehab placement as patient lives alone (lives in [place], [place]) -plan for DC to rehab when bed available -f/u with [facility] or [facility] in 1 1/2 weeks - SNF placement MARGARITA CAMPO PA-C Oct 20, 2016 06:43
[2016-10-20 07:22] LABS: HEMATOCRIT 26.8 % (39.0-51.0); MEAN CELL VOLUME 84.6 FL (80.0-100.0); MEAN CORPUSCULAR HEMOGLOBIN 28.4 PG (27.0-34.0); MEAN CORPUSCULAR HGB CONC 33.5 % (32.0-36.0); PLATELET COUNT 269 TH/MM3 (150-450); RED BLOOD COUNT 3.17 MIL/MM3 (4.50-5.90); RED CELL DISTRIBUTION WIDTH 13.3 % (11.6-17.2); REVIEW FLAG FINAL; WHITE BLOOD COUNT 13.5 TH/MM3 (4.0-11.0)
[2016-10-20 07:40] LABS: BICARBONATE 30.1 MEQ/L (21.0-32.0)
[2016-10-20] MEDS: FAMOTIDINE 20 MG TAB PO SCH ×2 (09:00→21:50)
[2016-10-20] MEDS: FOLIC ACID 1 MG TAB PO SCH (09:00)
[2016-10-20] MEDS: THIAMINE HCL 100 MG TAB PO SCH (09:00)
[2016-10-20] MEDS: DOCUSATE SODIUM 50 MG/SENNA 8.6 MG TAB PO SCH ×2 (09:00→21:50)
[2016-10-20] MEDS: HYDROCHLOROTHIAZIDE 25 MG TAB PO SCH (09:00)
[2016-10-20] MEDS: CALCIUM/VITAMIN D 250 MG/125 U TAB PO SCH ×3 (09:00→17:19)
[2016-10-20] MEDS: ONDANSETRON ODT 4 MG TAB PO PRN (09:00)
[2016-10-20] MEDS: SODIUM CHLORIDE 0.9% FLUSH 5 ML FLUSH IVF SCH ×2 (09:01→21:50)
[2016-10-20] MEDS: ATORVASTATIN 20 MG TAB PO SCH (09:01)
--- NOTE | 2016-10-20 11:25 | HHI.FPPN ---
Subjective Remarks Patient seen and examined by medical team. Overnight patient continues to be tachycardic with elevated BPs. He did take his pain medications as prescribed yesterday and states that is more comfortable today. He did have a BM POD#1, but has not since. He states that he has not been eating because of the nausea however today he feels the urge to eat and is optimistic about eating today. He has no other complaints and denies any fevers, chest pain, SOB, NVD, or calf tenderness. (Ethan Mcelroy MD R1) Objective Vitals Vital Signs Date Time Temp Pulse Resp B/P Pulse Ox O2 Delivery O2 Flow Rate FiO2 10/20/16 08:00 97.2 88 20 160/96 99 10/20/16 04:00 98.3 96 17 183/91 99 10/20/16 00:00 99.2 88 18 148/83 10/19/16 20:30 99.8 112 18 158/80 97 10/19/16 16:00 97.6 105 18 152/92 98 10/19/16 12:00 99.2 110 18 149/89 98 I/O 10/19/16 10/19/16 10/19/16 10/20/16 10/20/16 10/20/16 07:00 15:00 23:00 07:00 15:00 23:00 Intake Total 480 ml 480 ml 240 ml 240 ml Output Total 400 ml 750 ml 350 ml 450 ml Balance 80 ml -270 ml -110 ml -210 ml Intake Oral 480 ml 480 ml 240 ml 240 ml Output Urine Total 400 ml 750 ml 350 ml 450 ml # Voids 2 # Bowel Movements 0 0 0 (Ethan Mcelroy MD R1) Result Diagram: 10/20/16 0610 10/20/16 0610 Objective Remarks GEN: Well-developed, well-nourished patient. No acute distress. CV: Mildly tachycardic with regular rhythm. No MGR appreciated. LUNGS: CTA BL with no CRW. No increased work of breathing. EXT: Right leg and bandage/splint from surgery. Able to move toes with sensation. GI: Soft, nontender, nondistended with +BS. No masses appreciated. NEURO/PSYCH: Awake, alert. Appropriate insight and judgment. Normal speech. ( Ethan Mcelroy MD R1) A/P Assessment and Plan Mr. Marsh is a 60 y/o CM with a PMHx of HTN, HPLD, and T2DM who is s/p fall presenting to the ED with multiple right lower extremity fractures. Admitted for ORIF and is POD #3. Discharge Planning Likely tomorrow with Rehab placement. DW: Dr. Cazares (Ethan Mcelroy MD R1) Attending Attestation Patient seen and examined. Case reviewed and discussed with the resident team. Agree with plan of care as discussed with me and documented in the resident note. he continues to improve and is preparing to go to rehab (Didi Cazares MD ) Problem List: (1) Femoral distal fracture Status: Acute Plan: S/p mechanical fall without loss of consciousness shown to have closed distal femoral and trimalleolar fractures of the right lower extremity. ORIF on 10/16/16. -Calcium and vitamin D supplements, to be continued as outpatient -Vitamin D 50,000 unitsx1 -Patient with mild tachycardia and HTN with temperature to 99.8 degrees. WBC increased from 8.5 to 13.5 overnight. Patient asymptomatic on exam. -CXR: Pending -UA: Pending Imaging: * Knee x-ray: Comminuted, impacted, displaced, and angulated fracture of the distal right femoral metaphyseal region. * Ankle x-ray: Trimalleolar ankle fracture with slight displacement of the fragments. Mild talonavicular joint subluxation. * Hip/pelvis x-ray: Unremarkable examination of the right hip. Orthopedic surgery consulted: Appreciate recommendations * NWB RLE * Plan for discharge to rehabilitation either today or tomorrow to rehab. * Follow up with Dr. Miller in 2wks * Case management assisting with rehab placement until his f/u appointment with Ortho prior to departing back to [place], appreciate assistance. (2) Trimalleolar fracture Status: Acute Plan: Please see plan as above (3) CKD (chronic kidney disease) Status: Chronic Plan: Patient likely has some chronic kidney disease as he appears to have a chronically elevated creatinine but electrolytes are otherwise unremarkable. -Closely monitor -Nursing order to encourage PO fluids placed (4) HTN (hypertension) Status: Chronic Plan: Patient with chronic hypertension currently on hydrochlorothiazide Patient currently does not know home dose, instructed patient to bring in medications for further reconciliation which he did not. Patient initially started on hydrochlorothiazide 12.5 mg that was increased to 25 mg daily. Patient started on amlodipine 5 mg due to elevated blood pressures Hydralazine 10 mg every 6 hours when necessary for SBP greater than 180 or diastolic blood pressure greater than 110 (5) Nutrition, metabolism, and development symptoms Status: Acute Plan: Diet: Regular Fluids: None, encourage PO fluids Electrolytes: Unremarkable DVT prophylaxis: Lovenox GI prophylaxis: Ranitidine BID Chronic conditions: * HTN: Patient unaware of home dose of HCTZ. Started 12.5mg, but will increase to 25mg as patient remains hypertensive. Added amlodipine 5mg daily. * HLD: Patient unaware of home dose of atorvastatin. Started 20 mg daily. * DM: Low-dose sliding scale, oral medications held (Ethan Mcelroy MD R1) Problem Qualifiers (1) Femoral distal fracture: (2) Trimalleolar fracture: Ethan Mcerloy MD R1 Oct 20, 2016 11:25 Didi Cazares MD Oct 21, 2016 14:03
--- NOTE | 2016-10-20 12:48 | RADRPT ---
EXAM DATE/TIME: 10/20/2016 11:19 [facility] COMPARISON: CHEST SINGLE AP, October 15, 2016, 9:08. CT THORAX W/O CONTRAST, October 15, 2016, 10:37. INDICATIONS : Cought. MEDICAL HISTORY : Hypertension. Diabetes mellitus type 2. SURGICAL HISTORY : Right leg. ENCOUNTER: Subsequent ACUITY: 4 - 6 days PAIN SCORE: 0/10 LOCATION: Bilateral chest FINDINGS: A single view of the chest demonstrates the lungs to be symmetrically aerated without evidence of mas s, infiltrate or effusion. The cardiomediastinal contours are unremarkable. Osseous structures are intact. CONCLUSION: Normal examination. Jere Peterson MD on October 20, 2016 at 12:46 Board Certified Radiologist. This report was verified electronically.
[2016-10-20] MEDS: ENOXAPARIN SODIUM 40 MG/0.4 ML SYRINGE SQ SCH (13:47)
[2016-10-20] MEDS: amLODIPine BESYLATE 5 MG TAB PO SCH (13:47)
[2016-10-20 15:30] LABS: BLOOD, URINE NEG (NEG); COMMENT (UR) CULT NOT INDICATED; CULTURE IF INDICATED CULT NOT INDICATED; GLUCOSE,URINE 300 mg/dL (NEG); KETONE, URINE TRACE mg/dL (NEG); MUCUS URINE FEW /lpf (OCC); NITRITE,URINE NEG (NEG); PH, URINE 5.5 (5.0-8.5); URINE COLOR YELLOW (YELLW/STRAW)
[2016-10-20] MEDS: glipiZIDE 5 MG TAB PO SCH (17:19)
[2016-10-21] VITALS (9 sets, daily range): BP systolic 109–165; BP diastolic 67–84; PULSE 77–160; RESP 9–20; TEMP 97.3–99.3; O2SAT 96–100
[2016-10-21] MEDS: ONDANSETRON ODT 4 MG TAB PO PRN ×3 (03:01→20:59)
[2016-10-21] MEDS: INSULIN ASPART SUPPLEMENTAL SCALE SQ SCH ×4 (06:43→20:59)
[2016-10-21] MEDS: glipiZIDE 5 MG TAB PO SCH ×2 (06:44→15:40)
--- NOTE | 2016-10-21 06:52 | PD.ORT.PN ---
Subjective Subjective Remarks Resting comfortably with pain controlled Objective Vitals Vital Signs Date Time Temp Pulse Resp B/P Pulse Ox O2 Delivery O2 Flow Rate FiO2 10/21/16 00:00 99.3 88 17 109/79 98 10/20/16 20:03 96.9 116 16 128/88 100 10/20/16 17:00 98.0 100 16 105/86 99 10/20/16 15:58 98.4 90 18 150/75 99 10/20/16 12:00 99.4 92 16 145/78 99 10/20/16 08:00 97.2 88 20 160/96 99 I/O 10/20/16 10/20/16 10/20/16 10/21/16 10/21/16 10/21/16 07:00 15:00 23:00 07:00 15:00 23:00 Intake Total 240 ml 240 ml 240 ml Output Total 450 ml 350 ml Balance -210 ml 240 ml -110 ml Intake Oral 240 ml 240 ml 240 ml Output Urine Total 450 ml 350 ml # Voids 1 # Bowel Movements 0 0 0 Result Diagram: 10/20/16 0610 10/20/16 0610 Imaging Last 24 hours Impressions Chest X-Ray 10/15/16 0857 Signed Impressions: Service Date/Time: September 09:08 - CONCLUSION: Questionable opacity or pleural thickening at the right apex. Recommend further characterization with noncontrast CT thorax. Anjel Christensen MD Objective Remarks RLE: dressings clean and dry. intact. + knee brace. + short leg splint Toes NVI Assessment & Plan Assessment and Plan 1) Right Distal Femur Fx and Trung Ankle Fx s/p ORIF - POD #5 -NWB RLE -maintain splint at all times Daily dressing changes from the knee and above, maintain splint(do not take down) -knee brace except for PT -PROM 0-90 -no quad sets or leg lifts -CM for rehab placement as patient lives alone (lives in [place], [place]) -plan for DC to rehab when bed available -f/u with [facility] or [facility] in 1 1/2 weeks - SNF placement MARGARITA CAMPO PA-C Oct 21, 2016 06:52
[2016-10-21 07:11] LABS: AUTOMATED NEUTROPHIL # 8.1 TH/MM3 (1.8-7.7); BASOPHIL # 0.1 TH/MM3 (0-0.2); BASOPHIL % 0.7 % (0.0-2.0); EOSINOPHIL # 0.2 TH/MM3 (0-0.4); EOSINOPHIL % 1.7 % (0.0-4.0); HEMATOCRIT 28.5 % (39.0-51.0); HEMO FLAGS DIFF FINAL; LYMPH % 17.4 % (9.0-44.0); MEAN CELL VOLUME 84.7 FL (80.0-100.0); MEAN CORPUSCULAR HEMOGLOBIN 28.4 PG (27.0-34.0); MEAN CORPUSCULAR HGB CONC 33.5 % (32.0-36.0); NEUT % 72.2 % (16.0-70.0); PLATELET COUNT 321 TH/MM3 (150-450); RED BLOOD COUNT 3.36 MIL/MM3 (4.50-5.90); WHITE BLOOD COUNT 11.2 TH/MM3 (4.0-11.0)
[2016-10-21 07:28] LABS: BICARBONATE 25.8 MEQ/L (21.0-32.0); POTASSIUM 3.9 MEQ/L (3.5-5.1)
[2016-10-21] MEDS ORDERED: glipiZIDE 5 MG TAB PO SCH (08:00)
[2016-10-21] MEDS: DOCUSATE SODIUM 50 MG/SENNA 8.6 MG TAB PO SCH ×2 (09:00→20:59)
[2016-10-21] MEDS: SODIUM CHLORIDE 0.9% FLUSH 5 ML FLUSH IVF SCH ×2 (09:00→21:00)
[2016-10-21] MEDS ORDERED: BISACODYL 10 MG SUPP RECTAL ONE (09:45)
[2016-10-21] MEDS: THIAMINE HCL 100 MG TAB PO SCH (10:00)
[2016-10-21] MEDS: FAMOTIDINE 20 MG TAB PO SCH ×2 (10:00→20:59)
[2016-10-21] MEDS: ATORVASTATIN 20 MG TAB PO SCH (10:01)
[2016-10-21] MEDS: FOLIC ACID 1 MG TAB PO SCH (10:02)
[2016-10-21] MEDS: ACETAMINOPHEN/HYDROcodone 325 MG/10 MG TAB PO PRN ×3 (10:02→20:59)
--- NOTE | 2016-10-21 10:02 | HHI.FPPN ---
Subjective Remarks Patient seen and examined this morning. No acute events overnight. Patient tachycardic likely related to pain as he has not received medication overnight. Complaint this morning is constipation, however he does feel that her urge to void. He states that his pain has improved and only requires the low-dose [place] currently. He denies any fevers, chills, shortness of breath, chest pain, NVD, or calf tenderness. He states that he is ready to go to rehabilitation and then ultimately back to [place]. Patient's primary care provider contacted for medicine reconciliation yesterday. Patient currently on all home medications and will be discharged with instructions to continue them. (Ethan Mcelroy MD R1) Objective Vitals Vital Signs Date Time Temp Pulse Resp B/P Pulse Ox O2 Delivery O2 Flow Rate FiO2 10/21/16 08:00 97.3 107 20 157/79 96 10/21/16 00:00 99.3 88 17 109/79 98 10/20/16 20:03 96.9 116 16 128/88 100 10/20/16 17:00 98.0 100 16 105/86 99 10/20/16 15:58 98.4 90 18 150/75 99 10/20/16 12:00 99.4 92 16 145/78 99 I/O 10/20/16 10/20/16 10/20/16 10/21/16 10/21/16 10/21/16 07:00 15:00 23:00 07:00 15:00 23:00 Intake Total 240 ml 240 ml 240 ml 240 ml Output Total 450 ml 350 ml 500 ml Balance -210 ml 240 ml -110 ml -260 ml Intake Oral 240 ml 240 ml 240 ml 240 ml Output Urine Total 450 ml 350 ml 500 ml # Voids 1 # Bowel Movements 0 0 0 0 (Ethan Mcelroy MD R1) Result Diagram: 10/21/1662210/21/16622 Objective Remarks GEN: Well-developed, well-nourished patient. No acute distress. CV: Mildly tachycardic to 90 with regular rhythm. No MGR appreciated. LUNGS: CTA BL with no CRW. No increased work of breathing. EXT: Right leg and bandage/splint from surgery. Able to move toes with sensation. Other extremity with no calf tenderness. GI: Soft, nontender, nondistended with +BS. No masses appreciated. NEURO/PSYCH: Awake, alert. Appropriate insight and judgment. Normal speech. ( Ethan Mcelroy MD R1) A/P Assessment and Plan Mr. Marsh is a 60 y/o CM with a PMHx of HTN, HPLD, and T2DM who is s/p fall presenting to the ED with multiple right lower extremity fractures. Admitted for ORIF and is POD #3. Discharge Planning Today pending rehab selection by family and patient. DW: Dr. Cazares and Dr. Quinteros (Ethan Mcelroy MD R1) Attending Attestation Patient seen and examined. Case reviewed and discussed with the resident team. Agree with plan of care as discussed with me and documented in the resident note. he had an episode of tachycardia with a regular narrow rhythm of 160. An EKG was ordered and he is on the Orthopedic floor where normally no iv cardiac meds can be given. However, the [facility] nurse was able to give a diltiazem bolus which subsequently converted him to NSR at a rate in the 80s or 90s. It very well could be flutter vs another SVT. Recommend transfer to a floor where he can be monitored and receive cardiac iv meds if needed as there is no guarantee that he will not go back into his arrhythmia. Also, he will be going to a rehab and then traveling back to [place] so Cardiology can help decide if he needs ablation vs just po meds. It is concerning that he will potentially be on a plane and could have more problems. (Didi Cazares MD) Problem List: (1) Femoral distal fracture Status: Acute Plan: S/p mechanical fall without loss of consciousness shown to have closed distal femoral and trimalleolar fractures of the right lower extremity. ORIF on 10/16/16. -Calcium and vitamin D supplements, to be continued as outpatient -Vitamin D 50,000 unitsx1 -Patient with mild tachycardia and HTN with temperature to 99.8 degrees. WBC increased from 8.5 to 13.5 overnight on 10/20. Patient asymptomatic on exam. -CXR: Normal examination -UA: Glucose 300, trace ketones, few mucus, culture not indicated Imaging: * Knee x-ray: Comminuted, impacted, displaced, and angulated fracture of the distal right femoral metaphyseal region. * Ankle x-ray: Trimalleolar ankle fracture with slight displacement of the fragments. Mild talonavicular joint subluxation. * Hip/pelvis x-ray: Unremarkable examination of the right hip. Orthopedic surgery consulted: Appreciate recommendations * NWB RLE * Plan for discharge to rehabilitation either today or tomorrow to rehab. * Follow up with Dr. Miller in 2wks * Case management assisting with rehab placement until his f/u appointment with Ortho prior to departing back to [place], appreciate assistance. (2) Trimalleolar fracture Status: Acute Plan: Please see plan as above (3) CKD (chronic kidney disease) Status: Chronic Plan: Patient likely has some chronic kidney disease as he appears to have a chronically elevated creatinine but electrolytes are otherwise unremarkable. -Closely monitor -Nursing order to encourage PO fluids placed (4) HTN (hypertension) Status: Chronic Plan: Patient with chronic hypertension currently on hydrochlorothiazide Patient currently does not know home dose, instructed patient to bring in medications for further reconciliation which he did not. Patient initially started on hydrochlorothiazide 12.5 mg that was increased to 25 mg daily. Patient started on amlodipine 5 mg due to elevated blood pressures Hydralazine 10 mg every 6 hours when necessary for SBP greater than 180 or diastolic blood pressure greater than 110 (5) Nutrition, metabolism, and development symptoms Status: Acute Plan: Diet: Regular Fluids: None, encourage PO fluids Electrolytes: Unremarkable DVT prophylaxis: Lovenox GI prophylaxis: Ranitidine BID Chronic conditions: * HTN: Patient unaware of home dose of HCTZ. Started 12.5mg, but will increase to 25mg as patient remains hypertensive. Added amlodipine 5mg daily on 10/20. * HLD: Patient unaware of home dose of atorvastatin. Started 20 mg daily. * DM: Low-dose sliding scale with Glipizide 5mg Daily (Ethan Mcelroy MD R1) Problem Qualifiers (1) Femoral distal fracture: (2) Trimalleolar fracture: Ethan Mcelroy MD R1 Oct 21, 2016 10:01 Didi Cazares MD Oct 21, 2016 14:08
[2016-10-21] MEDS: amLODIPine BESYLATE 5 MG TAB PO SCH (10:43)
[2016-10-21] MEDS: HYDROCHLOROTHIAZIDE 25 MG TAB PO SCH (10:43)
[2016-10-21] MEDS ORDERED: ONDA4TAB7 PO (11:30)
[2016-10-21] MEDS: ENOXAPARIN SODIUM 40 MG/0.4 ML SYRINGE SQ SCH (11:31)
[2016-10-21] MEDS ORDERED: DILTIAZEM HCL 25 MG/5 ML VIAL IVP ONE (12:15)
[2016-10-21] MEDS ORDERED: DILTIAZEM INJ 125 MG in SODIUM CHLORIDE 0.9% INJ 100 ML IV SCH (14:00)
--- NOTE | 2016-10-21 16:59 | HHI.FPPN ---
Addendum to progress note ADDENDUM Reason for addendum: Additonal documentation Additional information Subjective: Responded to page at around 1200 as patient was found to be tachycardic up to the 160s as well as diaphoretic. Once we arrived at bedside, patient remained tachycardic with a normal rhythm. He denied chest pain, SOB. Did endorse a brief episode of lightheadedness and nausea but this quickly resolved. At the time of onset, patient was moving from bed to chair. Patient was just concerned about his heart rate but he was otherwise asymptomatic. Objective: Pulse: Regular with rate in the 160s. BP: 110/60s O2 100% Gen: Resting comfortably in bed. Mildly diaphoretic. Respiratory: Clear to auscultation bilaterally Cardiac: Increased rate of normal rhythm. Weak radial pulses bilaterally EKG suggestive of possible atrial flutter A/P: 60-year-old male who was admitted for ORIF. POD 5. -Vasovagal maneuvers performed but pulse was not responsive -EKG suggestive of atrial flutter with RVR -Cardizem bolus 1, Cardizem drip if nonresponsive -Transferred to [facility] -Cardiology consulted for possible ablation for definitive treatment vs PO meds -Echo ordered Kasi-Albertina Quinteros MD R2 Oct 21, 2016 16:59
[2016-10-21] MEDS: CALCIUM/VITAMIN D 250 MG/125 U TAB PO SCH (18:16)
[2016-10-21] MEDS ORDERED: PILL SPLITTER OTHER PRN (18:30)
[2016-10-21] MEDS: METOPROLOL TARTRATE 25 MG TAB PO SCH (20:59)
[2016-10-21] MEDS ORDERED: METOPROLOL TARTRATE 25 MG TAB PO SCH (21:00)
--- NOTE | 2016-10-21 21:04 | EC ---
Study Study Date:10/21/2016 STUDY CONCLUSIONS SUMMARY LEFT VENTRICLE: The cavity size was normal. Wall thickness was normal. Systolic function was mildly reduced. The estimated ejection fraction was 45%. Wall motion was normal; there were no regional wall motion abnormalities. If LV function is below 40, please consider prescribing an ACEI or ARB or document rationale for non-use. PROCEDURE DATA STUDY STATUS: Elective. Procedure: Transthoracic echocardiography. Image quality was good. Scanning was performed from the parasternal, apical, and subcostal acoustic windows. Study completion: The patient tolerated the procedure well. Transthoracic echocardiography. M-mode, complete 2D, complete spectral Doppler, and color Doppler. Patient status: Inpatient. CARDIAC ANATOMY LEFT VENTRICLE: The cavity size was normal. Wall thickness was normal. Systolic function was mildly reduced. The estimated ejection fraction was 45%. Wall motion was normal; there were no regional wall motion abnormalities. AORTIC VALVE: Trileaflet; normal thickness leaflets. Doppler: Transvalvular velocity was within the normal range. There was no stenosis. No regurgitation. AORTA: Aortic root: The aortic root was normal in size. MITRAL VALVE: Structurally normal valve. Doppler: Transvalvular velocity was within the normal range. There was no evidence for stenosis. No regurgitation. Peak gradient: 2mm Hg (D). LEFT ATRIUM: The atrium was normal in size. RIGHT VENTRICLE: The cavity size was normal. Wall thickness was normal. PULMONIC VALVE: Doppler: Transvalvular velocity was within the normal range. There was no evidence for stenosis. No regurgitation. TRICUSPID VALVE: Structurally normal valve. Doppler: Transvalvular velocity was within the normal range. Trace regurgitation. PULMONARY ARTERY: The main pulmonary artery was normal-sized. Systolic pressure was within the normal range. RIGHT ATRIUM: The atrium was normal in size. PERICARDIUM: There was no pericardial effusion. SYSTEMIC VEINS: Inferior vena cava: The vessel was normal in size. BASIC MEASUREMENTS ADULT Normal Left ventricle LV internal dimension, ED, chordal level, 43.1 mm 43-52 PLAX LV internal dimension, ES, chordal level, 36.6 mm 23-38 PLAX Fractional shortening, chordal level, PLAX *15 % >29 LV posterior wall thickness, ED 6.61 mm IVS/LVPW ratio, ED *1.32 <1.3 Ventricular septum Septal thickness, ED 8.73 mm Aortic valve Leaflet separation 17 mm 15-26 Left atrium Anterior-posterior dimension 24 mm Right ventricle RV internal dimension, ED, PLAX 19.5 mm 19-38 BASIC MEASUREMENTS ADULT Normal Aortic valve Leaflet separation 17 mm 15-26 Aorta Root diameter, ED 37 mm 20-37 DOPPLER MEASUREMENTS ADULT Normal Main pulmonary artery Pressure, S 15 mm Hg =30 Mitral valve Peak E-wave velocity 71.6 cm/s Peak A-wave velocity 43.9 cm/s Peak gradient, D 2 mm Hg Peak E/A ratio 1.6 Tricuspid valve Regurgitant peak velocity 111 cm/s Peak RV-RA gradient, S 5 mm Hg Maximal regurgitant velocity 111 cm/s Systemic veins Estimated CVP 10 mm Hg Right ventricle RV pressure, S 15 mm Hg <30 LEGEND: Mean values are shown as u=mean value. Asterisk (*) omer values outside specified normal range. Prepared and signed by Ta St [id number]
--- NOTE | 2016-10-21 21:14 | MB ---
cc: BRICEDEACONGRIFFIN DATE OF CONSULTATION 10/21/2016 REASON FOR CONSULTATION Ms. Marsh is a 60-year-old white male who was admitted after he fell and broke his right leg. He underwent surgery by Dr. Miller. Last night and today he developed palpitations, tachycardia, mild lightheadedness and nausea. He has not had any chest pain or shortness of breath. He was found to be in atrial flutter with rapid ventricular response. Heart rate of 161 beats per minute. He spontaneously converted to sinus rhythm. PAST MEDICAL HISTORY Positive for: 1. Hypertension. 2. Dyslipidemia. 3. Diabetes mellitus. 4. No previous cardiac history. 5. History of osteoarthritis. 6. Elbow surgery. 7. Right knee arthroscopy. MEDICATIONS Include: 1. Diltiazem IV. 2. Glucotrol. 3. Amlodipine. 4. Hydrochlorothiazide. 5. Pepcid. 6. Lovenox. 7. Thiamine. 8. Folic acid. ALLERGIES NONE. SOCIAL HISTORY The patient does not smoke. He drinks beer occasionally. 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 He lives in [place]. FAMILY HISTORY Negative for heart disease. REVIEW OF SYSTEMS Otherwise negative. PHYSICAL EXAMINATION VITAL SIGNS: Blood pressure 130/67, pulse 95 and regular. HEENT: Negative. 2+ carotid upstroke. No bruits. LUNGS: Clear. HEART: Regular with no murmur, gallop or rub. ABDOMEN: Soft. No bruits. EXTREMITIES: Without edema. 2+ distal pulses. The right lower extremity is immobilized. NEUROLOGICAL: Grossly nonfocal. EKG was reviewed and showed atrial flutter with 2:1 block, increased ventricular response, nonspecific ST-T changes. Labs, hemoglobin 9.5. Potassium 3.9. Creatinine 2.18. DIAGNOSES 1. Paroxysmal atrial flutter with rapid ventricular response. 2. Recent right hip fracture, status post open reduction, internal fixation. 3. Hypertension. 4. Dyslipidemia. 5. Diabetes mellitus. DISPOSITION Mr. Marsh was found to have evidence of paroxysmal atrial flutter with rapid ventricular response. He spontaneously converted to sinus rhythm. I recommend to continue his current medical program. Given his history of hypertension and diabetes mellitus he will benefit from full anticoagulation to decrease the risk of stroke. He has renal insufficiency and the dose of a novel anticoagulant will need to be adjusted based on his GFR. I will follow him for cardiology during his hospitalization. He will need to follow up with a blood splatter analyst in [place] after discharge. MD ESTRELLITA Wise/JOHANNA /6:15 PM /8:23 PM CRISTIANO
[2016-10-22] VITALS (13 sets, daily range): BP systolic 127–137; BP diastolic 73–85; PULSE 70–88; RESP 16–18; TEMP 97.8–98.7; O2SAT 99–100
[2016-10-22] MEDS: ONDANSETRON ODT 4 MG TAB PO PRN ×2 (03:19→08:53)
[2016-10-22] MEDS: ACETAMINOPHEN/HYDROcodone 325 MG/10 MG TAB PO PRN ×2 (03:19→08:53)
[2016-10-22] MEDS: glipiZIDE 5 MG TAB PO SCH (06:17)
[2016-10-22] MEDS: INSULIN ASPART SUPPLEMENTAL SCALE SQ SCH ×2 (06:17→11:00)
[2016-10-22] MEDS ORDERED: BISACODYL 10 MG SUPP RECTAL ONE (07:30)
--- NOTE | 2016-10-22 08:17 | HHI.FPPN ---
Subjective Remarks No acute events overnight. Vital signs unremarkable. Patient did not require Cardizem drip to maintain appropriate heart rate. This morning he states that he feels well and is ready to go. Denies any chest pain or shortness of breath. Patient has no concerns today. (Albertina Evans MD R2) Objective Vitals Vital Signs Date Time Temp Pulse Resp B/P Pulse Ox O2 Delivery O2 Flow Rate FiO2 10/22/16 06:50 16 10/22/16 06:00 77 10/22/16 05:00 76 10/22/16 04:00 78 10/22/16 03:00 98.7 80 16 137/82 100 10/22/16 03:00 80 10/22/16 02:00 77 10/22/16 01:00 78 10/22/16 00:00 73 10/21/16 23:00 98.3 77 16 134/84 100 10/21/16 23:00 77 10/21/16 22:00 98 10/21/16 20:00 90 10/21/16 20:00 99.0 100 11 165/77 100 10/21/16 18:00 90 10/21/16 16:40 11 10/21/16 16:00 98 10/21/16 16:00 98.8 98 9 130/67 100 10/21/16 14:00 94 10/21/16 12:00 97.8 160 20 156/72 100 I/O 10/21/16 10/21/16 10/21/16 10/22/16 10/22/16 10/22/16 07:00 15:00 23:00 07:00 15:00 23:00 Intake Total 240 ml 240 ml 480 ml Output Total 500 ml 400 ml 575 ml Balance -260 ml -160 ml -95 ml Intake Oral 240 ml 240 ml 480 ml Output Urine Total 500 ml 400 ml 575 ml # Bowel Movements 0 0 0 (Albertina Evans MD R2) Result Diagram: 10/21/1662210/21/16622 Objective Remarks GEN: Well-developed, well-nourished patient. No acute distress. CV: Regular rate and rhythm.. No MGR appreciated. LUNGS: CTA BL with no CRW. No increased work of breathing. EXT: Right leg and bandage/splint from surgery. GI: Soft, nontender, nondistended. No masses appreciated. NEURO/PSYCH: Awake, alert. Appropriate insight and judgment. Normal speech. ( Albertina Evans MD R2) A/P Assessment and Plan Mr. Marsh is a 60 y/o CM with a PMHx of HTN, HPLD, and T2DM who is s/p fall presenting to the ED with multiple right lower extremity fractures. Admitted for ORIF Discharge Planning Today pending BM WDW: Dr. Cazares and Dr. Mcelroy (Albertina Evans MD R2) Attending Attestation Attending Note per reports, pt very eager to leave hospital. he was informed that his renal fxn was slightly worse but did not want more treatment in the hospital as he very much wants to go to rehab. He will have his renal fxn checked at rehab and is otherwise stable for D/C (Didi Cazares MD) Problem List: (1) Atrial flutter Status: Acute Plan: New onset atrial flutter on 10/21/2016. Rate was controlled with 1 bolus of Cardizem. 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 ORIF on 10/16/16. -Calcium and vitamin D supplements, to be continued as outpatient -Vitamin D 50,000 unitsx1 Imaging: * Knee x-ray: Comminuted, impacted, displaced, and angulated fracture of the distal right femoral metaphyseal region. * Ankle x-ray: Trimalleolar ankle fracture with slight displacement of the fragments. Mild talonavicular joint subluxation. * Hip/pelvis x-ray: Unremarkable examination of the right hip. Orthopedic surgery consulted: Appreciate recommendations * NWB RLE * Plan for discharge to rehabilitation either today or tomorrow to rehab. * Follow up with Dr. Miller in 2wks * Case management assisting with rehab placement until his f/u appointment with Ortho prior to departing back to [place], appreciate assistance. (3) Trimalleolar fracture Status: Acute Plan: Please see plan as above (4) CKD (chronic kidney disease) Status: Chronic Plan: Patient likely has some chronic kidney disease as he appears to have a chronically elevated creatinine but electrolytes are otherwise unremarkable. -Closely monitor -Nursing order to encourage PO fluids placed (5) HTN (hypertension) Status: Chronic Plan: Patient with chronic hypertension currently on hydrochlorothiazide -Continue home HCTZ and amlodipine (6) Nutrition, metabolism, and development symptoms Status: Acute Plan: Diet: Regular Fluids: None, encourage PO fluids Electrolytes: Unremarkable DVT prophylaxis: Lovenox GI prophylaxis: Ranitidine BID Chronic conditions: * HLD: Patient unaware of home dose of atorvastatin. Started 20 mg daily. * DM: Low-dose sliding scale with Glipizide 5mg Daily (Albertina Evans MD R2) Problem Qualifiers (1) Femoral distal fracture: (2) Trimalleolar fracture: Albertina Evans MD R2 Oct 22, 2016 08:16 Didi Cazares MD Oct 22, 2016 12:11
[2016-10-22] MEDS ORDERED: XARE15TA PO (08:26)
[2016-10-22] MEDS ORDERED: ERGO1CAP30 PO (08:32)
[2016-10-22] MEDS ORDERED: VITA10003 PO (08:32)
--- NOTE | 2016-10-22 08:33 | HHI.DCPOC ---
Discharge Care Plan Diagnosis: (1) Femoral distal fracture (2) Trimalleolar fracture (3) Atrial flutter (4) Type 2 diabetes mellitus (5) CKD (chronic kidney disease) (6) Vitamin D deficiency Goals to Promote Your Health * To prevent worsening of your condition and complications * To maintain your health at the optimal level Directions to Meet Your Goals Take your medications as prescribed Follow your dietary instruction Follow activity as directed Keep your appointments as scheduled Take your immunizations and boosters as scheduled If your symptoms worsen call your PCP, if no PCP go to Urgent Care Center or Emergency Room Smoking is Dangerous to Your Health. Avoid second hand smoke Call the 24-hour hour crisis hotline for domestic abuse at Albertina Evans MD R2 Oct 22, 2016 08:33
[2016-10-22] MEDS: amLODIPine BESYLATE 5 MG TAB PO SCH (08:53)
[2016-10-22] MEDS: CALCIUM/VITAMIN D 250 MG/125 U TAB PO SCH ×2 (08:53→11:19)
[2016-10-22] MEDS: FOLIC ACID 1 MG TAB PO SCH (08:53)
[2016-10-22] MEDS: THIAMINE HCL 100 MG TAB PO SCH (08:53)
[2016-10-22] MEDS: FAMOTIDINE 20 MG TAB PO SCH (08:53)
[2016-10-22] MEDS: HYDROCHLOROTHIAZIDE 25 MG TAB PO SCH (08:53)
[2016-10-22] MEDS: DOCUSATE SODIUM 50 MG/SENNA 8.6 MG TAB PO SCH (08:54)
[2016-10-22] MEDS: SODIUM CHLORIDE 0.9% FLUSH 5 ML FLUSH IVF SCH (08:54)
[2016-10-22] MEDS: ATORVASTATIN 20 MG TAB PO SCH (08:54)
[2016-10-22] MEDS: METOPROLOL TARTRATE 25 MG TAB PO SCH (08:54)
[2016-10-22] MEDS ORDERED: METO25TA3 PO (09:04)
[2016-10-22] MEDS ORDERED: PERI8.6T PO (09:05)
[2016-10-22] MEDS ORDERED: POLYETHYLENE GLYCOL 17 GM PKG PO SCH ×2 (09:15→11:00)
[2016-10-22] MEDS ORDERED: DOCUSATE SODIUM 50 MG/SENNA 8.6 MG TAB PO ONE (09:15)
--- NOTE | 2016-10-22 09:45 | HHI.DS ---
Discharge Summary Admission Date Oct 15, 2016 at 09:31 Discharge Date: Oct 22, 2016 Admitting Diagnosis (1) Atrial flutter Plan: New onset atrial flutter on 10/21/2016. Rate was controlled with 1 bolus of Cardizem. 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 ORIF on 10/16/16. -Calcium and vitamin D supplements, to be continued as outpatient -Vitamin D 50,000 unitsx1 Imaging: * Knee x-ray: Comminuted, impacted, displaced, and angulated fracture of the distal right femoral metaphyseal region. * Ankle x-ray: Trimalleolar ankle fracture with slight displacement of the fragments. Mild talonavicular joint subluxation. * Hip/pelvis x-ray: Unremarkable examination of the right hip. Orthopedic surgery consulted: Appreciate recommendations * NWB RLE * Plan for discharge to rehabilitation either today or tomorrow to rehab. * Follow up with Dr. Miller in 2wks * Case management assisting with rehab placement until his f/u appointment with Ortho prior to departing back to [place], appreciate assistance. (3) Trimalleolar fracture Plan: Please see plan as above (4) CKD (chronic kidney disease) Plan: Patient likely has some chronic kidney disease as he appears to have a chronically elevated creatinine but electrolytes are otherwise unremarkable. -Closely monitor -Nursing order to encourage PO fluids placed (5) HTN (hypertension) Plan: Patient with chronic hypertension currently on hydrochlorothiazide -Continue home HCTZ and amlodipine (6) Nutrition, metabolism, and development symptoms Plan: Diet: Regular Fluids: None, encourage PO fluids Electrolytes: Unremarkable DVT prophylaxis: Lovenox GI prophylaxis: Ranitidine BID Chronic conditions: * HLD: Patient unaware of home dose of atorvastatin. Started 20 mg daily. * DM: Low-dose sliding scale with Glipizide 5mg Daily [facility] Procedures ORIF of right knee and ankle Brief History Mr. Marsh is a 60 y/o CM with a PMHx of HPLD, HTN, and T2DM presenting to the ER s/p fall. 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 He states that this morning at approximately 0630 he got up to go use the bathroom when he fell. He did not lose consciousness during the fall and describes it as "falling backward onto his RLE with his LLE going forward in front of him." When he fell he heard a "crack" and immediately lost feeling in his entire RLE. He tried to get up from the floor, but was unable to bear weight on his RLE. At that time, he began feeling 10/10 pain "stabbing" pain in his knee. His friend called EMS and was transported to the ER. Currently he only complains of knee pain that is currently tolerable as he has just received a dose of morphine. He does not complain of any ankle or hip pain. He last had any food at around midnight, but has had soda this morning. Of note he has had R knee arthroscopy approximately 30 years ago. He denies any fevers, chills, SOB , chest pain, NVD, or calf tenderness. CBC/BMP: 10/21/16 0623 10/21/16 0623 Significant Findings Laboratory Tests Test 10/20/16 10/20/16 10/21/16 06:10 11:00 06:23 White Blood Count 13.5 TH/MM3 11.2 TH/MM3 (4.0-11.0) (4.0-11.0) Red Blood Count 3.17 MIL/MM3 3.36 MIL/MM3 (4.50-5.90) (4.50-5.90) Hemoglobin 9.0 GM/DL 9.5 GM/DL (13.0-17.0) (13.0-17.0) Hematocrit 26.8 % 28.5 % (39.0-51.0) (39.0-51.0) Mean Platelet Volume 6.9 FL (7.0-11.0) Blood Urea Nitrogen 30 MG/DL (7-18) 38 MG/DL (7-18) Creatinine 1.84 MG/DL 2.18 MG/DL (0.60-1.30) (0.60-1.30) Estimat Glomerular Filtration 38 ML/MIN (>89) 31 ML/MIN (>89) Rate Random Glucose 242 MG/DL 243 MG/DL (74-106) (74-106) Urine Glucose (UA) 300 mg/dL (NEG) Urine Ketones TRACE mg/dL (NEG) Urine Mucus FEW /lpf (OCC) Neutrophils (%) (Auto) 72.2 % (16.0-70.0) Neutrophils # (Auto) 8.1 TH/MM3 (1.8-7.7) Imaging Last Impressions Chest X-Ray 10/20/16 Signed Impressions: Service Date/Time: Thursday, October 20, 2016 11:19 - CONCLUSION: Normal examination. Jere Peterson MD Femur X-Ray 10/16/16 Signed Impressions: Service Date/Time: Sunday, October 16, 2016 13:08 - CONCLUSION: Good position and alignment on this postoperative study. Jb Gee MD Ankle X-Ray 10/16/16 Signed Impressions: Service Date/Time: Sunday, October 16, 2016 13:08 - CONCLUSION: Good position and alignment on this postoperative study. Jb Gee MD Thyroid Ultrasound 10/15/16 Signed Impressions: Service Date/Time: September 13:31 - CONCLUSION: The nodule identified on recent ultrasound represents a predominantly solid nodule in the right mid thyroid gland measuring up to 4.1 cm. It contains no calcification and demonstrates no irregular margins. Based on the size one could consider fine needle aspiration biopsy versus ultrasound followup. Jericho Hanks MD Lower Extremity CT 10/15/16 Signed Impressions: Service Date/Time: September 12:40 - CONCLUSION: Comminuted and angulated fracture of the distal femur with some comminution and some impaction. Anjel Christensen MD Knee X-Ray 10/15/16 Signed Impressions: Service Date/Time: September 08:28 - CONCLUSION: Comminuted , impacted, displaced and angulated fracture of the distal right femoral metaphyseal region Jericho Irivn MD Hip and Pelvis X-Ray 10/15/16 0000 Signed Impressions: Service Date/Time: September 08:25 - CONCLUSION: Unremarkable examination of the right hip. Jericho Irvin MD Chest CT 10/15/16 0000 Signed Impressions: Service Date/Time: September 10:37 - CONCLUSION: Right thyroid mass. Recommend further evaluation with thyroid sonography. Tiny right lung nodules which can be followed. Jericho Irvin MD PE at Discharge GEN: Well-developed, well-nourished patient. No acute distress. CV: Regular rate and rhythm.. No MGR appreciated. LUNGS: CTA BL with no CRW. No increased work of breathing. EXT: Right leg and bandage/splint from surgery. GI: Soft, nontender, nondistended. No masses appreciated. NEURO/PSYCH: Awake, alert. Appropriate insight and judgment. Normal speech. Hospital Course 60-year-old male with a PMH significant for CKD, HTN, DM. Admitted for right femur and trimalleolar fracture that underwent ORIF on 10/16 without complications. Postop care was complicated by new onset atrial flutter with RVR that was quickly rate controlled with IV bolus of diltiazem. He was then rate controlled with metoprolol. He also had a bout of constipation that was treated with Sydni-Colace. Cardiology was consulted due to the new onset atrial flutter and agreed with medical management with follow-up with cardiology in [place]. Echo showed an EF of 45%. Patient was also found to have low vitamin D that was treated with supplementation. Patient was discharged in stable condition to SNF. Of note discharge was about to be held due to slight bump in creatinine however patient indicated that he really wanted to go and will improve his fluid intake. Additionally we will repeat blood work tomorrow since he'll be going to SNF. Pt Condition on Discharge: Stable Discharge Disposition: Discharge to SNF Discharge Instructions DIET: Follow Instructions for: Heart Healthy Diet Activities you can perform: Non Weight Bearing Follow up Referrals: Cardiology - 3 Weeks Orthopedics - 10/30/16 [facility] with Zachary Miller MD New Orders: BASIC METABOLIC PROF - 2-3 Days VITAMIN D,25-HYDROXY - 1 Month New Medications: Calcium Carbonate-Vitamin D (Calcium 600+D 200) 600-200 Mg-Unit Tab 1 TAB PO BID Nutritional Supplement Days 30 Ref 0 TAB Cholecalciferol (Vitamin D-3) 1,000 Unit Tab 1000 UNITS PO DAILY #30 Ref 0 TAB Ergocalciferol (Ergocalciferol) 50,000 Unit Cap 77860 UNITS PO Q7D Nutritional Supplement #6 Ref 0 CAP Hydrocodone-Acetaminophen (Knickerbocker) 10-325 Mg Tab 1 TAB PO Q4H PRN PAIN #60 Ref 0 TAB Sennosides-Docusate Sodium (Sydni-Colace) 8.6-50 Mg Tab 2 TAB PO BID PRN Constipation #60 Ref 0 TAB Walker/Adult/Folding (Walker/Adult/Folding) 1 Mis Mis 1 EA .ROUTE DIRECTED #1 Ref 0 EA Wheelchair Elevated Leg (Wheelchair Elevated Leg) 1 Mis Mis 1 EA .ROUTE DIRECTED #1 Ref 0 EA Metoprolol Tartrate (Metoprolol Tartrate) 25 Mg Tab 25 MG PO Q12HR #60 TAB Ondansetron Odt (Ondansetron Odt) 4 Mg Tab 4 MG PO Q6H PRN NAUSEA OR VOMITING #30 TAB Rivaroxaban (Xarelto) 15 Mg Tab 15 MG PO DAILY #30 TAB Continued Medications: Aspirin (Aspirin 81 Low Dose) 81 Mg Chew 81 MG CHEW DAILY #30 TAB Atorvastatin (Atorvastatin) Unknown Strength Tab 40 MG PO HS Cholesterol Management #30 Ref 0 TAB Gabapentin (Gabapentin) Unknown Strength Cap 300 MG PO TID #60 Ref 0 CAP Glipizide (Glipizide) Unknown Strength Tab Unknown Dose PO BIDAC Take 30 minutes before a meal Blood Sugar Management #60 Ref 0 TAB Hydrochlorothiazide (Hydrochlorothiazide) Unknown Strength Cap Unknown Dose PO DAILY #30 Ref 0 CAP Discontinued Medications: Metformin (Metformin) 500 Mg Tab 500 MG PO DAILY With a meal Blood Sugar Management #30 Ref 0 TAB Albertina Evans MD R2 Oct 22, 2016 09:45
[2016-10-22 10:32] LABS: MEAN CELL VOLUME 83.5 FL (80.0-100.0); MEAN CORPUSCULAR HEMOGLOBIN 28.9 PG (27.0-34.0); MEAN CORPUSCULAR HGB CONC 34.6 % (32.0-36.0); PLATELET COUNT 380 TH/MM3 (150-450); RED BLOOD COUNT 3.24 MIL/MM3 (4.50-5.90); RED CELL DISTRIBUTION WIDTH 13.2 % (11.6-17.2); REVIEW FLAG FINAL; WHITE BLOOD COUNT 10.2 TH/MM3 (4.0-11.0)
[2016-10-22 10:55] LABS: BICARBONATE 29.7 MEQ/L (21.0-32.0); POTASSIUM 3.3 MEQ/L (3.5-5.1)
[2016-10-22] MEDS: ENOXAPARIN SODIUM 40 MG/0.4 ML SYRINGE SQ SCH (11:19)
--- NOTE | 2016-10-22 11:38 | PD.CARD.PN ---
Subjective Subjective Remarks No CP, SOB or palpitations Objective Medications Current Medications Medications (Trade) Dose Ordered Sig/Gavin Route Start Time Stop Time Status Last Admin (Tylenol) 650 mg Q4H PRN PO 10/15/16 09:45 (Benadryl Inj) 25 mg Q4H PRN IV 10/15/16 09:45 10/17/16 02:35 (D50w (Vial) Inj) 25 ml UNSCH PRN IV PUSH 10/15/16 09:45 (Glucagon Inj) 1 mg UNSCH PRN OTHER 10/15/16 09:45 (Apresoline) 10 mg QID PRN PO 10/15/16 10:30 10/16/16 08:07 (NS Flush) 2 ml UNSCH PRN IVF 10/16/16 13:30 (NS Flush) 2 ml BID IVF 10/16/16 21:00 10/22/16 08:54 (Lovenox Inj) 40 mg Q24H SQ 10/17/16 13:00 10/21/16 11:31 (Upton 10-325 Mg) 1 tab Q3H PRN PO 10/16/16 13:30 10/22/16 08:53 (Upton 10-325 Mg) 2 tab Q6H PRN PO 10/16/16 13:30 10/21/16 15:40 (Oscal-D 250-125) 250 mg TID PO 10/16/16 18:00 10/22/16 08:53 (Vitamin B1) 100 mg DAILY PO 10/17/16 09:00 10/22/16 08:53 (Folate) 1 mg DAILY PO 10/17/16 09:00 10/22/16 08:53 (Narcan Inj) 0.4 mg UNSCH PRN IV 10/16/16 13:30 (Lipitor) 20 mg DAILY PO 10/18/16 09:00 10/22/16 08:54 (Ambien) 5 mg HS PRN PO 10/17/16 16:00 10/17/16 23:06 (Baciguent Oint) 1 applic UNSCH PRN TOP 10/18/16 01:15 (Zofran Odt) 4 mg Q6H PRN PO 10/19/16 10:15 10/22/16 08:53 (Pepcid) 20 mg Q12HR PO 10/19/16 11:45 10/22/16 08:53 (Hydrodiuril) 25 mg DAILY PO 10/20/16 09:00 10/22/16 08:53 (Norvasc) 5 mg DAILY PO 10/20/16 12:00 10/22/16 08:53 (Glucotrol) 5 mg BIDAC PO 10/20/16 16:00 10/22/16 06:17 (Pill Splitter) 1 ea UNSCH PRN OTHER 10/21/16 18:30 (Lopressor) 25 mg Q12HR PO 10/21/16 21:00 10/22/16 08:54 (Xarelto) 15 mg DAILY@12 PO 10/22/16 12:00 10/22/16 11:01 (Sydni-Colace) 2 tab BID PO 10/22/16 21:00 (Miralax) 17 gm DAILY PO 10/22/16 09:15 Potassium Chloride 40 meq 40 meq ONCE ONCE PO 10/22/16 12:00 10/22/16 12:01 10/22/16 11:19 (NS 1000 ml Inj) 1,000 ml @ 80 mls/hr [id number] IV 10/22/16 12:00 Vital Signs / I&O Vital Signs Date Time Temp Pulse Resp B/P Pulse Ox O2 Delivery O2 Flow Rate FiO2 10/22/16 09:59 16 10/22/16 08:00 97.8 88 18 134/85 99 10/22/16 08:00 88 10/22/16 06:00 77 10/22/16 05:00 76 10/22/16 04:00 78 10/22/16 03:00 98.7 80 16 137/82 100 10/22/16 03:00 80 10/22/16 02:00 77 10/22/16 01:00 78 10/22/16 00:00 73 10/21/16 23:00 98.3 77 16 134/84 100 10/21/16 23:00 77 10/21/16 22:00 98 10/21/16 20:00 90 10/21/16 20:00 99.0 100 11 165/77 100 10/21/16 18:00 90 10/21/16 16:40 11 10/21/16 16:00 98 10/21/16 16:00 98.8 98 9 130/67 100 10/21/16 14:00 94 10/21/16 12:00 97.8 160 20 156/72 100 I/O 10/21/16 10/21/16 10/21/16 10/22/16 10/22/16 10/22/16 07:00 15:00 23:00 07:00 15:00 23:00 Intake Total 240 ml 240 ml 480 ml Output Total 500 ml 400 ml 575 ml Balance -260 ml -160 ml -95 ml Intake Oral 240 ml 240 ml 480 ml Output Urine Total 500 ml 400 ml 575 ml # Bowel Movements 0 0 0 Physical Exam GENERAL: SKIN: Warm and dry. HEAD: Normocephalic. EYES: No scleral icterus. No injection or drainage. NECK: Supple, trachea midline. No JVD or lymphadenopathy. CARDIOVASCULAR: Regular rate and rhythm without murmurs, gallops, or rubs. RESPIRATORY: Breath sounds equal bilaterally. No accessory muscle use. GASTROINTESTINAL: Abdomen soft, non-tender, nondistended. MUSCULOSKELETAL: No cyanosis, or edema. R LE immobilized Laboratory Laboratory Tests Test 10/22/16 09:56 White Blood Count 10.2 TH/MM3 Red Blood Count 3.24 MIL/MM3 Hemoglobin 9.3 GM/DL Hematocrit 27.0 % Mean Corpuscular Volume 83.5 FL Mean Corpuscular Hemoglobin 28.9 PG Mean Corpuscular Hemoglobin 34.6 % Concent Red Cell Distribution Width 13.2 % Platelet Count 380 TH/MM3 Mean Platelet Volume 6.8 FL Sodium Level 138 MEQ/L Potassium Level 3.3 MEQ/L Chloride Level 99 MEQ/L Carbon Dioxide Level 29.7 MEQ/L Anion Gap 9 MEQ/L Blood Urea Nitrogen 38 MG/DL Creatinine 2.24 MG/DL Estimat Glomerular Filtration 30 ML/MIN Rate Random Glucose 133 MG/DL Calcium Level 8.2 MG/DL Magnesium Level 2.0 MG/DL Imaging Last Impressions Chest X-Ray 10/20/16 0000 Signed Impressions: Service Date/Time: Thursday, October 20, 2016 11:19 - CONCLUSION: Normal examination. Jere Peterson MD Femur X-Ray 10/16/16 0000 Signed Impressions: Service Date/Time: Sunday, October 16, 2016 13:08 - CONCLUSION: Good position and alignment on this postoperative study. Jb Gee MD Ankle X-Ray 10/16/16 0000 Signed Impressions: Service Date/Time: Sunday, October 16, 2016 13:08 - CONCLUSION: Good position and alignment on this postoperative study. Jb Gee MD Thyroid Ultrasound 10/15/16 0000 Signed Impressions: Service Date/Time: September 13:31 - CONCLUSION: The nodule identified on recent ultrasound represents a predominantly solid nodule in the right mid thyroid gland measuring up to 4.1 cm. It contains no calcification and demonstrates no irregular margins. Based on the size one could consider fine needle aspiration biopsy versus ultrasound followup. Jericho Hanks MD Lower Extremity CT 10/15/16 0000 Signed Impressions: Service Date/Time: September 12:40 - CONCLUSION: Comminuted and angulated fracture of the distal femur with some comminution and some impaction. Anjel Christensen MD Knee X-Ray 10/15/16 0000 Signed Impressions: Service Date/Time: September 08:28 - CONCLUSION: Comminuted , impacted, displaced and angulated fracture of the distal right femoral metaphyseal region Jericho Irvin MD Hip and Pelvis X-Ray 10/15/16 0000 Signed Impressions: Service Date/Time: September 08:25 - CONCLUSION: Unremarkable examination of the right hip. Jericho Irvin MD Chest CT 10/15/16 0000 Signed Impressions: Service Date/Time: September 10:37 - CONCLUSION: Right thyroid mass. Recommend further evaluation with thyroid sonography. Tiny right lung nodules which can be followed. Jericho Irvin MD Assessment and Plan Problem List: (1) Atrial flutter (2) HTN (hypertension) (3) Hyperlipidemia (4) Type 2 diabetes mellitus (5) Trimalleolar fracture Assessment and Plan No recurrent atrial flutter. Continue anticoagulation with Xarelto to prevent DVT and stroke. Stable from cardiac standpoint. Discharge to rehab as planned. F /u with a enrollment eligibility representative at home. Problem Qualifiers (1) Trimalleolar fracture: Ta St MD Oct 22, 2016 11:38
[2016-10-22] MEDS ORDERED: SODIUM CHLOR 0.9% 1000 ML INJ 1,000 ML IV SCH (12:00)
[2016-10-22] MEDS ORDERED: POTASSIUM CHLORIDE 20 MEQ CONTROLLED RELEASE TAB PO ONE (12:00)
[2016-10-22] MEDS ORDERED: RIVAROXABAN 15 MG TAB PO SCH (12:00)
[2016-10-22] MEDS ORDERED: DOCUSATE SODIUM 50 MG/SENNA 8.6 MG TAB PO SCH (21:00)
--- NOTE | 2016-10-23 00:03 | EKG ---
Date Performed: 10/21/2016 Time Performed: 12:06:48 PTAGE: 60 years EKG: SUPRAVENTRICULAR TACHYCARDIA MODERATE ST DEPRESSION ABNORMAL ECG PREVIOUS TRACING : 10/15/2016 09.02 Compared to the previous tracing, SVT IS NEW DOCTOR: Sukhdev Montiel Interpretating Date/Time 10/23/2016 00:02:30
== END 2016-10-22 12:26 | DRG 481 ==
LOC: NEPE 07:33 → NEDA 09:31 → N06B 13:16 → N03B 10-21 14:32 → HCIS 10-21 23:01
PROVIDERS: ADMIT Family Medicine; ATTEND Family Medicine
PROC: 0QSB04Z Reposition Right Lower Femur with Internal Fixation Device, Open Approach (ICD-10-PCS; principal; 2016-10-16 11:38)
PROC: 0QSJ04Z Reposition Right Fibula with Internal Fixation Device, Open Approach (ICD-10-PCS; 2016-10-16 11:38)
DX: S72.451A Displaced supracondylar fracture without intracondylar extension of lower end of right femur, initial encounter for closed fracture (principal); I48.92 Unspecified atrial flutter; E11.22 Type 2 diabetes mellitus with diabetic chronic kidney disease; E11.40 Type 2 diabetes mellitus with diabetic neuropathy, unspecified; S82.851A Displaced trimalleolar fracture of right lower leg, initial encounter for closed fracture; S92.134A Nondisplaced fracture of posterior process of right talus, initial encounter for closed fracture; E78.5 Hyperlipidemia, unspecified; I12.9 Hypertensive chronic kidney disease with stage 1 through stage 4 chronic kidney disease, or unspecified chronic kidney disease; R91.8 Other nonspecific abnormal finding of lung field; M81.0 Age-related osteoporosis without current pathological fracture; N18.9 Chronic kidney disease, unspecified; M19.90 Unspecified osteoarthritis, unspecified site; Z72.0 Tobacco use; K59.00 Constipation, unspecified; Z79.84 Long term (current) use of oral hypoglycemic drugs; W01.0XXA Fall on same level from slipping, tripping and stumbling without subsequent striking against object, initial encounter; Y93.01 Activity, walking, marching and hiking; Y92.009 Unspecified place in unspecified non-institutional (private) residence as the place of occurrence of the external cause
CPT/HCPCS: 71010; 71250; 73502; 73552; 73564; 73600; 73700; 76000; 76536; 80048; 80053; 81001; 82306; 82948; 83735; 85025; 85027; 85610; 85730; 93005; 93306; 94150; 96374; 96375; 96376; C1713; J0131; J0690; J1100; J1200; J1580; J1650; J1815; J2250; J2270; J2370; J2405; J2710; J3010; J3370; J7030; J7050; J7120; L1830